=== PATIENT | female | born 2000 | race Caucasian/White ===

== ENCOUNTER 2019-07-22 15:45 | Outpatient (CLI) | payer MEDICAID, SELFPAY ==
--- NOTE | 2019-07-22 15:50 | US_ITS ---
WS: [id number] EARLY OBSTETRICAL ULTRASOUND (<14 WEEKS). HISTORY: UNSURE OF DATES COMPARISON: None available. Single intrauterine gestational sac is identified. Cardiac activity at 185 BPM. Asher-rump length alfonzo sures 3.3 cm which corresponds to a gestation of 10 weeks 1 day. Normal-appearing yolk sac and amnion demonstrated. No subchorionic hemorrhage. No free fluid. Neither ovary is very well visualized. US/US OB <= 14 weeks fetus [id number] IMPRESSION: 1. Single intrauterine gestation of 10 weeks 1 day with an EDC of 02/16/2020. 2. Normal cardiac activity.
== END 2019-07-22 15:46 | disposition home or self-care (01) ==
PROVIDERS: Visit Provider Family Medicine
DX: Z3A.00 Weeks of gestation of pregnancy not specified (principal); Z34.91 Encounter for supervision of normal pregnancy, unspecified, first trimester; Z3A.10 10 weeks gestation of pregnancy
CPT/HCPCS: 76801

== ENCOUNTER 2020-01-18 20:30 | Outpatient (CLI) | payer MEDICAID, SELFPAY ==
[2020-01-18 20:40] VITALS: BMI 26.9
[2020-01-18 20:50] VITALS: BP 127/73; PULSE 116; RESP 16; TEMP 36.9
[2020-01-18 21:33] LABS: Actim Prom Negative
[2020-01-18 21:34] LABS: Bilirubin Urine Neg (Negative); Blood Urine Neg (Negative); Glucose Urine UA Norm (Normal); Ketones Urine Negative (Negative); Nitrate Urine Negative (Negative); Protein Urine Neg (Negative); Urine Color Yellow (Yellow); pH Urine 7 (5-7)
[2020-01-18 21:35] LABS: Add Urine Culture? No; Bacteria Urine TRACE /hpf; Leukocyte Esterase Urine Negative (Negative); RBC Urine 0-4 /hpf (0-2); Squamous Epithelial Cell Urine TOO NUMEROUS TO CNT /hpf (0-5); Urobilinogen Urine Norm (Negative); WBC Urine 0-4 /hpf (0-5)
[2020-01-18 23:05] VITALS: BP 116/67; PULSE 98; RESP 16; TEMP 37.1
[2020-01-18 23:07] VITALS: BP 116/67; PULSE 98; RESP 16; TEMP 37.1
== END 2020-01-18 23:28 | disposition home or self-care (01) ==
LOC: OPOB 20:34 → OBGYN 20:34
PROVIDERS: Visit Provider Obstetrics & Gynecology
DX: O26.899 Other specified pregnancy related conditions, unspecified trimester (principal); Z3A.00 Weeks of gestation of pregnancy not specified; R10.9 Unspecified abdominal pain
CPT/HCPCS: 59025; 81001; 83986; 84112; 99211

== ENCOUNTER 2020-01-21 16:25 | Outpatient (CLI) | payer MEDICAID, SELFPAY ==
[2020-01-21 17:03] VITALS: BP 129/73; PULSE 110
[2020-01-21 17:09] VITALS: RESP 18; TEMP 37.2
[2020-01-21 17:10] VITALS: BMI 26.5
[2020-01-21 18:34] VITALS: BP 115/67; PULSE 104
== END 2020-01-21 18:40 | disposition home or self-care (01) ==
LOC: OPOB 16:36 → OBGYN 16:37
PROVIDERS: Visit Provider Family Medicine
DX: O26.899 Other specified pregnancy related conditions, unspecified trimester (principal); Z3A.00 Weeks of gestation of pregnancy not specified; R10.9 Unspecified abdominal pain
CPT/HCPCS: 59025; 99211

== ENCOUNTER 2020-01-23 11:40 | Outpatient (CLI) | payer MEDICAID, SELFPAY ==
[2020-01-23] VITALS (10 sets, daily range): BP systolic 0–132; BP diastolic 0–70; PULSE 100–118; RESP 16; TEMP 36.8; BMI 26.3
[2020-01-23 12:18] LABS: Nitrazine Paper, PH Negative
[2020-01-23 12:33] LABS: Basophils # 0.1 10^3/uL (0.0-0.1); Basophils % 0.5 %; Eosinophils # 0.2 10^3/uL (0.0-0.8); Eosinophils % 1.3 %; Hematocrit 29.2 % (37.0-47.0); Hemoglobin 10.3 g/dL (11.5-15.3); Lymphocytes # 2.9 10^3/uL (0.8-4.8); Lymphocytes % 17.7 %; Mean Corpuscular HGB Conc 35.3 g/dL (30.0-36.0); Mean Corpuscular Hemoglobin 32.3 pg (28.0-34.0); Mean Corpuscular Volume 91.5 fL (81-99); Mean Platelet Volume 10.7 fL (7.4-10.4); Monocytes # 1.3 10^3/uL (0.2-0.9); Monocytes % 7.7 %; Neutrophils # 11.65 10^3/uL (1.8-7.7); Neutrophils % 70.6 %; Nucleated Red Blood Cells # 0.1 /100WBC; Nucleated Red Blood Cells % 0.4 %; Platelet Count 295 10^3/cmm (130-400); Red Blood Count 3.19 10^6/uL (4.1-5.3); Red Cell Distribution Width 19.3 % (12.1-15.1); White Blood Count 16.5 10^3/uL (4.0-10.0)
[2020-01-23 12:46] LABS: Bilirubin Urine Neg (Negative); Blood Urine Neg (Negative); Glucose Urine UA Norm (Normal); Ketones Urine Negative (Negative); Leukocyte Esterase Urine Negative (Negative); Nitrate Urine Negative (Negative); Protein Urine Neg (Negative); Specific Gravity, Urine 1.015 (1.005-1.030); Sulfosalicylic Acid Urine Negative (Negative); Urine Appearance Cloudy (CLEAR); Urine Color Yellow (Yellow); Urobilinogen Urine 1 mg/dL (Negative); pH Urine 8 (5-7)
[2020-01-23 12:54] LABS: Amphetamines Screen Urine Negative (Negative); Barbiturates Screen Urine Negative (Negative); Benzodiazepines Screen Urine Negative (Negative); Cocaine Screen Urine Negative (Negative); Opiate Screen Urine Negative (Negative); PCP Screen Urine Negative (Negative); THC Screen Urine Negative (Negative)
[2020-01-23 13:17] LABS: Add Urine Culture? No; Amorphous Sediment Urine 1+ /hpf; Bacteria Urine TRACE /hpf; WBC Urine 0-4 /hpf (0-5)
== END 2020-01-23 13:25 | disposition home or self-care (01) ==
LOC: OPOB 11:45 → OBGYN 11:46
PROVIDERS: Visit Provider Obstetrics & Gynecology
DX: O26.899 Other specified pregnancy related conditions, unspecified trimester (principal)
CPT/HCPCS: 36415; 80306; 81001; 83986; 85025; 99211

== ENCOUNTER 2020-02-18 02:22 | Inpatient (IN) | payer MEDICAID, SELFPAY ==
[2020-02-17 19:08] VITALS: BP 144/80; PULSE 135
[2020-02-17 19:09] VITALS: BP 140/73; PULSE 133
[2020-02-17 19:52] VITALS: BP 119/71; PULSE 112
[2020-02-17 20:00] VITALS: TEMP 36.7
[2020-02-17 20:02] VITALS: BP 116/66; PULSE 105
[2020-02-17 20:27] VITALS: BMI 27.4
[2020-02-17 20:56] LABS: Basophils # 0.1 10^3/uL (0.0-0.1); Basophils % 0.6 %; Eosinophils # 0.2 10^3/uL (0.0-0.8); Hemoglobin 10.8 g/dL (11.5-15.3); Lymphocytes # 3.6 10^3/uL (0.8-4.8); Lymphocytes % 16.6 %; Mean Corpuscular Volume 91.7 fL (81-99); Mean Platelet Volume 10.7 fL (7.4-10.4); Monocytes # 1.4 10^3/uL (0.2-0.9); Monocytes % 6.4 %; Neutrophils # 15.86 10^3/uL (1.8-7.7); Neutrophils % 73.5 %; Nucleated Red Blood Cells # 0.2 /100WBC; Nucleated Red Blood Cells % 0.7 %; Platelet Count 301 10^3/cmm (130-400); Red Blood Count 3.27 10^6/uL (4.1-5.3); Red Cell Distribution Width 19.8 % (12.1-15.1); White Blood Count 21.6 10^3/uL (4.0-10.0)
[2020-02-18] VITALS (155 sets, daily range): BP systolic 0–130; BP diastolic 0–81; PULSE 75–118; RESP 16–20; TEMP 36.6–37.2; O2SAT 88–100
[2020-02-18] MEDS: miSOPROStol 100 mcg tablet 25 MCG VAGINAL ×2 (00:46→06:34)
[2020-02-18] MEDS: acetaminophen 325 mg Tablet 650 MG PO (00:46)
--- NOTE | 2020-02-18 03:09 | ANES.PREANE2 ---
Pre-Anesthetic Assessment Pre-Anesthetic Assessment: Height/Weight: Height 1.68 m Weight 77.111 kg Temp Pulse BP Pulse Ox 98.1 F 90 111/69 99 02/17/20 20:00 02/18/20 03:07 02/18/20 03:07 02/18/20 03:04 Preop Diagnosis: IUP Proposed Procedure: Lumbar Labor Epidural Was Beta Mansoor taken within 24 hours: N/A Social: Social History: Tobacco (1-2 cig day) Exam: Pre-Anes Outpt Exam: alert, oriented x 3, clear to auscultation bilaterally and regular rate & rhythm Airway: MP: 2 History/ROS: Other (wbc 21. no s/s infection. no fever) Pulmonary: Pulmonary: None reported CV/HEM: CV/HEM: None reported : : None reported Hepatic: Hepatic: None reported GI: GI: None reported Metabolic: Metabolic: None reported Musc/skel: Musc/skel: None reported Neuropsych: Neuropsych: None reported Anesthetic Plan: ASA status: 2 Anesthesia: Regional (specify below) (epidural) Meds/Allergies Current Medications: Current Medications Generic Name Dose Route Start Last Admin Trade Name Freq PRN Reason Stop Dose Admin Acetaminophen 650 mg 02/17/20 20:29 02/18/20 00:46 Acetaminophen 32 5 Mg Tablet PO 650 mg Q6H PRN Administration Mild pain or temp > 100.4 Ropivacaine 200 mg in 100 mls @ 6 mls/hr 02/18/20 01:30 02/18/20 02:50 Naropin Premix EPIDURAL 6 mls/hr .[id number] SHAAN Administration Misoprostol 25 mcg 02/17/20 20:30 02/18/20 00:46 Misoprostol 100 Mcg Tablet VAGINAL 02/18/20 04:31 25 mcg Q4H SHAAN Administration PFSH Anesthesia Female Reproductive History: Date of last menstrual period: 05/17/19 : 3 Data Anesthesia CBC & Chem 7: 02/17/20 20:06 Other Labs: Laboratory Results - last 48 hr 02/17/20 20:06 WBC 21.6 H RBC 3.27 L Hgb 10.8 L Hct 30.0 L MCV 91.7 MCH 33.0 MCHC 36.0 RDW 19.8 H Plt Count 301 MPV 10.7 H Neut % (Auto) 73.5 Lymph % (Auto) 16.6 Andrews % (Auto) 6.4 Eos % (Auto) 1.0 Baso % (Auto) 0.6 Neut # (Auto) 15.86 H Lymph # (Auto) 3.6 Andrews # (Auto) 1.4 H Eos # (Auto) 0.2 Baso # (Auto) 0.1 Nucleated RBC % (auto) 0.7 Nucleated RBCs # 0.2 Cardiac Studies: No Data to Display Anesthesia Procedures Date of Procedure: 02/18/20 Epidural: Time Out Performed: Yes Consents Signed: Procedure Consent Consent: from patient, risks and benefits reviewed and patient agrees to proceed Lumbar Level: L3-L4 Epidural position: sitting Epidural procedure: sterile prep of area, 1% lidocaine to numb the area (5), 18 g needle, negative for paresthesia passed, neg for paresthesia, test dose given, 1.5% xylocaine 1:200k epi (5), 0.2% Ropivacaine bolus ml (5), placed PCEA (5cc q10min x 3), no systemic response, sterile dressing applied, L.U.D. no apparent complications and 0.2% Ropiavacaine @ mls/hr (12) Additional Comments: Called to OB for epidural placement, pt evaluated and assessed for placement and explained procedure. Labs reviewed. Pt agrees to proceed. placed to 5cm in space and tolerated well. Bolused with epidural pump and VSS throughout per nursing chart. Last BP 113/70. Pain much improved.
[2020-02-18] MEDS: dextrose 5%-lactated ringers 1,000 ML 125 ML IV ×3 (03:20→18:53)
[2020-02-18] MEDS: ondansetron 2 mg/ML SDV 2 mL 4 MG IVP (09:20)
[2020-02-18] MEDS: oxytocin 30 UNIT/500 ML BAG 600 UNIT IV (21:31)
--- NOTE | 2020-02-18 21:53 | P.PCNOB_ITS ---
Delivery Note: Date of delivery: February 18, 2020 Pre-delivery diagnoses: 40-week 3 para 1-0-1-1 female presenting for induction Post-delivery diagnoses: Same Procedure: Spontaneous vaginal delivery Op report anesthesia: Epidural Estimated blood loss (mL): 150 Pre-Delivery Course: The patient arrived to the hospital for induction last night. She was placed on Cytotec 25 mcg x 3. An amniotomy was performed. Pitocin augmentation occurred. She progressed to complete without difficulty. Her was unremarkable. She was GBS negative. She was Covid negative. Her glucose screen was negative. The remainder of her labs was unremarkable. Her blood type is O+. Delivery: DELIVERY: The patient progressed to complete without difficulty. She delivered a male with a weight of 7 pounds 13 ounces with Apgars of 8, 9. The baby was delivered from the YUKO position. The baby's mouth and nose were suctioned shortly after delivery. The baby was placed on the mother's abdomen. After 1 minute the cord was then clamped and cut. There was no nuchal cord. There was no meconium. The placenta and 3 vessel cord were delivered intact shortly thereafter. The perineum and vaginal vault were carefully examined. No lacerations were noted. Both the mother and the baby were in stable condition. A&P Assessment and plan (1) Post term over 40 weeks: Status: Acute (2) Spontaneous vaginal delivery: Status: Acute Coding Level of Care Code Acute Jacquard Card Lacer for Chg Fwd Diagnoses Post term over 40 weeks O48.0 Spontaneous vaginal delivery O80
[2020-02-18] MEDS: benzocaine-menthol 78 gm Canister 1 SPRAY TOPICAL (23:23)
[2020-02-18] MEDS: lanolin oint 7 gm 1 APPLIC TOPICAL (23:23)
[2020-02-19] VITALS (11 sets, daily range): BP systolic 100–117; BP diastolic 61–72; PULSE 86–97; RESP 16–18; TEMP 36.4–37.1; O2SAT 96–99
[2020-02-19] MEDS: HYDROcodone-acetaminophen 5-325 mg Tablet PO ×3 (00:44→14:52)
--- NOTE | 2020-02-19 04:13 | PC.NURSE ---
AT 2345, PT AMBULATED TO ROOM. FINANCIAL ASSISTANT PROVIDED STANDBY ASSISTANCE. PT TOLERATED AMBULATION WELL WITH NO COMPLAINTS OR SIGNS OF DISTRESS.
[2020-02-19] MEDS: prenatal vitamin Capsule 1 CAP PO (08:42)
[2020-02-19] MEDS: ibuprofen 800 mg tablet PO ×3 (08:43→21:19)
[2020-02-19] MEDS: docusate sodium 100 mg Capsule PO (08:43)
[2020-02-19 10:28] LABS: Hematocrit 25.3 % (37.0-47.0); Hemoglobin 8.7 g/dL (11.5-15.3); Mean Corpuscular HGB Conc 34.4 g/dL (30.0-36.0); Mean Corpuscular Hemoglobin 32.3 pg (28.0-34.0); Mean Corpuscular Volume 94.1 fL (81-99); Mean Platelet Volume 11.2 fL (7.4-10.4); Platelet Count 234 10^3/cmm (130-400); Red Blood Count 2.69 10^6/uL (4.1-5.3); Red Cell Distribution Width 20.3 % (12.1-15.1); White Blood Count 19.6 10^3/uL (4.0-10.0)
--- NOTE | 2020-02-19 18:16 | PM.OBGYDC ---
Discharge Providers LENS GRINDING MACHINE OPERATOR Date of Admission: 02/18/20 02:22 Date of Discharge: 02/19/20 Attending Provider at Admission: Ronald Solo MD Attending Provider at Discharge: Ronald Solo MD Diagnoses at Discharge Discharge Diagnosis (1) Post term over 40 weeks: Status: Acute (2) Spontaneous vaginal delivery: Status: Acute Reason for Visit Reason for Visit: Induction of labor Hospital Course Hospital Course The patient presented to the hospital for induction due to being postdates. She is placed on Cytotec 25 mcg x 3. An amniotomy was performed. Her labor was augmented with Pitocin. She progressed to complete and had an unremarkable delivery of a healthy term male . Her course was also unremarkable. Her bleeding was within normal limits. Her pain was well controlled. She breast-fed well. There were no concerns. Information Peripartum Data: Infant Delivery Method: Vaginal Physical Exam Narrative: EXAM NARRATIVE: The patient is alert. She appears comfortable. Her heart has a regular rate and rhythm with no murmurs appreciated. Lungs are clear to auscultation bilaterally. Her fundus is firm and below the umbilicus. Urinary Catheter Management^: Akins: Cath Placed During This Visit: yes Reason for Continuing Indwelling Catheter: Required Immobilization for Trauma or Surgery or Anesthesia Urinary Catheter Date of Insertion: 02/18/20 Urinary Catheter Time of Insertion: 03:45 Discharge Data Data Completed and Pending: Labs from last 24 hours 02/19/20 10:10 WBC 19.6 H RBC 2.69 L Hgb 8.7 L Hct 25.3 L MCV 94.1 MCH 32.3 MCHC 34.4 RDW 20.3 H Plt Count 234 MPV 11.2 H Vitals: Last Vital Signs Temp 97.9 F 02/19/20 15:00 Pulse 93 02/19/20 15:00 Resp 18 02/19/20 15:00 BP 117/72 02/19/20 15:00 Pulse Ox 98 02/19/20 15:00 Discharge Plan Discharge Patient Disposition: Home Condition: Stable Prescriptions: New ibuprofen 800 mg Tablet 800 mg PO TID Qty: 30 RF: 0 Continued prenat.vits,britney,zug-ksuk-odtuc Tablet 1 tab PO DAILY RF: 0 Discharge Orders: Discharge Order (Routine); Ordered 02/19/20 Ordered By: Ronald Solo Referrals: Ronald Solo MD [Physician] - 6 Weeks Discharge Diet: Regular Discharge Activity: Limit activity as instructed Discharge Attestations LENS GRINDING MACHINE OPERATOR Time Spent in Discharge Care*: less than 30 min Coding Level of Care Code Acute Auto Cleaner for Chg Fwd Diagnoses Post term over 40 weeks O48.0 Spontaneous vaginal delivery O80
== END 2020-02-19 22:17 | disposition home or self-care (01) | DRG 807 ==
LOC: OBGYN 05:57 → OPOB 07:59
PROVIDERS: Admitting Provider Family Medicine; Visit Provider Family Medicine
DX: O48.0 Post-term pregnancy (principal); Z37.0 Single live birth; Z3A.40 40 weeks gestation of pregnancy
CPT/HCPCS: 12345; 36415; 51702; 59025; 59409; 85025; 85027; 96375; 98960; 99211; J2405; J2795

== ENCOUNTER → 2021-02-02 09:47 | Outpatient (BNVA) | payer MEDICAID, SELFPAY | PROVIDERS: Visit Provider Obstetrics & Gynecology | DX: Z01.818 Encounter for other preprocedural examination (principal); Z20.822 Contact with and (suspected) exposure to COVID-19; N80.9 Endometriosis, unspecified; N92.0 Excessive and frequent menstruation with regular cycle; N94.6 Dysmenorrhea, unspecified; R10.2 Pelvic and perineal pain; Z84.2 Family history of other diseases of the genitourinary system | CPT/HCPCS: 87635 ==

== ENCOUNTER 2021-02-08 10:26 | Observation (INO) | payer MEDICAID, SELFPAY ==
[2021-02-07 14:12] VITALS: BMI 21.7
[2021-02-08] VITALS (23 sets, daily range): BP systolic 96–122; BP diastolic 57–75; PULSE 77–114; RESP 14–18; TEMP 36.3–36.9; O2SAT 92–100
[2021-02-08 06:47] LABS: OR HCG Qualitative Urine Negative (Negative)
[2021-02-08] MEDS: sodium chloride 0.9% 1,000 ML 30 ML IV (06:51)
--- NOTE | 2021-02-08 06:51 | ANES.PREANE2 ---
Pre-Anesthetic Assessment Pre-Anesthetic Assessment: Height/Weight: Height 1.68 m Weight 61.235 kg Temp Pulse Resp BP Pulse Ox 97.4 F L 96 18 107/66 100 02/08/21 06:18 02/08/21 06:18 02/08/21 06:18 02/08/21 06:18 02/08/21 06:18 Preop Diagnosis: endometriosis, dysmenorrhea, menorrhagia, pelvic pain Proposed Procedure: Operation Date: 02/08/21 07:00 Proposed Procedures p Laparoscopic Assist Vaginal Hysterectomy 64646 N80.9 N92.0 N94.6 R10.2 Z84.2(Not Applicable) - Yue Gutierres MD s Laparoscopic Salpingectomy(Bilateral) - Yue Gutierres MD Was Beta Mansoor taken within 24 hours: N/A Was Clonidine taken within 24 hours: N/A Last intake: Intake Last Liquid Date 02/07/21 Last Liquid Time 21:30 Last Solid Date 02/07/21 Last Solid Time 21:30 Social: Social History: Tobacco and No alcohol Exam: Pre-Anes Outpt Exam: alert, oriented x 3, clear to auscultation bilaterally and regular rate & rhythm Airway: Submandibular: WNL Cervical ROM: WNL MP: 1 Pulmonary: Pulmonary: Asthma CV/HEM: CV/HEM: None reported : : None reported Hepatic: Hepatic: None reported GI: GI: GERD (only with certain foods) Metabolic: Metabolic: None reported Musc/skel: Musc/skel: None reported Neuropsych: Neuropsych: Depression Anesthetic Plan: ASA status: 2 Anesthesia: General PFSH Anesthesia PFSH: Medical History Anxiety Asthma exacerbation Depression History of abnormal cervical Pap smear History of depression Left ovarian cyst Redundant colon Surgical History History of appendectomy Family History Mother Raynaud's syndrome Scleroderma CHF (congestive heart failure) Endometriosis Cancer chronic lymphatic leukemia Hypertension Grandmother Cancer acute lymphatic leukemia and lung leukemia--Maternal Grandfather Cancer Maternal--prostate Denies family history of Diabetes CAD (coronary artery disease) Clotting disorder Hyperlipidemia Chronic kidney disease (CKD) Bleeding disorder Stroke Female Reproductive History: Date of last menstrual period: 05/17/19 Data Anesthesia Other Labs: Laboratory Results - last 48 hr 02/08/21 06:44 Urine HCG, Qual Negative Cardiac Studies: No Data to Display
[2021-02-08] MEDS: acetaminophen 1,000 MG/100 ML PIGGYBACK 400 MG IV (06:52)
[2021-02-08] MEDS: CELEcoxib 200 mg Capsule 400 MG PO (06:53)
[2021-02-08] MEDS: ketorolac 30 mg/mL INJ IVP ×3 (06:53→22:22)
[2021-02-08] MEDS: gabapentin 300 mg Capsule PO (06:53)
[2021-02-08] MEDS: phenazopyridine 100 mg Tablet 200 MG PO (06:53)
--- NOTE | 2021-02-08 07:00 | W.PM.OPSUD ---
Surgery/Procedure H&P Update DATE OF PROCEDURE: February 08, 2021 DATE H&P PERFORMED: 01/28/21 H&P UPDATE INFORMATION: I have reviewed H&P completed within last 30 days, I have examined patient prior to procedure and No changes to prior documentation CHANGES TO PREVIOUS DOCUMENTATION: The patient is seen and examined. No changes. PREOP DIAGNOSIS: endometriosis, dysmenorrhea, menorrhagia, pelvic pain PLANNED PROCEDURE: Operation Date: 02/08/21 07:00 Proposed Procedures p Laparoscopic Assist Vaginal Hysterectomy 27970 N80.9 N92.0 N94.6 R10.2 Z84.2(Not Applicable) - Yue Gutierres MD s Laparoscopic Salpingectomy(Bilateral) - Yue Gutierres MD Related Problem List Diagnoses (1) Menorrhagia: (2) Dysmenorrhea: (3) Pelvic pain: (4) Endometriosis: (5) History of abnormal cervical Pap smear:
[2021-02-08 07:05] LABS: Basophils # 0.1 10^3/uL (0.0-0.1); Basophils % 0.8 %; Eosinophils # 0.3 10^3/uL (0.0-0.8); Hematocrit 35.4 % (37.0-47.0); Hemoglobin 12.8 g/dL (11.5-15.3); Lymphocytes # 2.3 10^3/uL (0.8-4.8); Lymphocytes % 26.8 %; Mean Corpuscular HGB Conc 36.2 g/dL (30.0-36.0); Mean Corpuscular Hemoglobin 28.6 pg (28.0-34.0); Mean Platelet Volume 11.2 fL (7.4-10.4); Monocytes # 0.6 10^3/uL (0.2-0.9); Monocytes % 6.4 %; Neutrophils # 5.37 10^3/uL (1.8-7.7); Neutrophils % 62.5 %; Nucleated Red Blood Cells % 0 %; Platelet Count 262 10^3/cmm (130-400); Red Blood Count 4.48 10^6/uL (4.1-5.3); Red Cell Distribution Width 16.8 % (12.1-15.1); White Blood Count 8.6 10^3/uL (4.0-10.0)
[2021-02-08 07:25] LABS: Blood Urea Nitrogen 6 mg/dL (6-20); Calcium 9.1 mg/dL (8.5-10.5); Carbon Dioxide 24 mmol/L (22-29); Chloride 106 mmol/L (98-107); Glomerular Filtration Rate 199.6 mL/min (90-130); Glucose 92 mg/dL (65-115); Osmolality Calculated 287 mOsm/kg (285-295); Sodium 140 mmol/L (136-145)
[2021-02-08] MEDS: vasopressin 20 unit/mL INJ 4 UNIT INJECTION (08:35)
--- NOTE | 2021-02-08 08:36 | SUR.OPER ---
0750 PT PLACED VERY LOW ON OR TABLE PER DR MCGUIRE INSTRUCTION, CARE WAS TAKEN TO MAKE SURE LOWER BACK WAS PADDED. DR MCGUIRE INSPECTED AND APPROVED FINAL POSITION.
--- NOTE | 2021-02-08 09:43 | PM.OP ---
Operative Report Date of procedure: February 08, 2021 Pre-op Diagnosis: endometriosis, dysmenorrhea, menorrhagia, pelvic pain Post-op diagnosis: same Post-op Diagnosis: No endometriosis seen Procedure Done: laparoscopic assisted vaginal hysterectomy with bilateral salpingectomy, cystoscopy Specimens removed/disposition: uterus and bilateral fallopian tubes to pathology Anesthesia: General Estimated blood loss (mL): 150 IV fluids (mL): 1,500 Urine output (mL): 1,200 Complications: none Findings: 8 week sized uterus, normal appearing tubes and ovaries. No adhesions, no endometriosis seen. Condition: stable Disposition: floor Brief History: The patient presented as a consult for hysterectomy. She has a family history of endometriosis and reports pelvic pain for a number of years. She is done with child bearing. She has a long history of abnormal pap smears, heavy menses and dysmenorrhea. She underwent a second opinion consult with Dr. French who felt that the patient understood her risks and could proceed. Procedure: The patient was taken to the operating room where general anesthesia was administered and found to be adequate. She was prepped and draped in the normal sterile fashion in the dorsal lithotomy position in [facility]. A Akins catheter was placed. A weighted speculum was placed into the vagina and the anterior lip of the cervix was grasped with a single tooth tenaculum. The Zumi uterine manipulator was placed. The weighted speculum was removed. The gloves were changed and attention was turned to the abdomen. A 5 mm supraumbilical incision was made. Using a 5 mm port with the camera, the port was placed into the abdomen. The abdomen was insufflated. Two low, lateral 5 mm ports were placed on the left and right under direct visualization from the camera. The right tube was grasped and elevated. Using the laparoscopic cautery, the mesosalpinx was divided between the ovary and tube. The tube was removed. This was performed the same way on the left. The uteroovarian ligaments as well as the round ligaments were ligated. Attention was then turned to the vaginal portion of the procedure. The weighted speculum was placed into the vagina. The zumi manipulator was removed. The single tooth tenaculum was removed and replaced with the lauren's tenaculum. 10 mL of dilute Pitressin was injected at the vesicovaginal junction. A circumferential incision was made at the vesicovaginal junction and the vaginal mucosa reflected cephalad. The posterior peritoneum was entered sharply with the Metzenbaum scissors and the long weighted speculum replaced. Using the Allison clamps the uterosacral ligaments were clamped cut and suture-ligated. The anterior peritoneum was entered sharply with the metzenbaum scissors. Then sequentially the uterine arteries and cardinal ligaments were clamped cut and suture-ligated. The remaining segement of the utero-ovarian ligaments were clamped cut and suture-ligated bilaterally and the specimen was removed. There was good hemostasis with only mild bleeding from the cuff. The peritoneum was closed with a pursestring using 2-0 Vicryl. The vaginal cuff was closed with 0 Vicryl in a running locked pattern incorporating the uterosacral ligaments into the lateral aspects of the vaginal cuff. The Akins catheter was removed and the cystoscope advanced into the bladder. The patient was given pyridium during preop and bilateral spill was noted. There were no injuries or deficits noted in the bladder. The cystoscope was removed and the Akins was replaced. Vaginal packing was placed for good hemostasis. The patient tolerated the procedure well. Sponge lap and needle counts were correct x3. She was taken to the recovery room in stable condition.
[2021-02-08] MEDS: fentaNYL 50 mcg/mL INJ 2mL IVP ×2 (09:53→10:01)
[2021-02-08] MEDS: ondansetron 2 mg/ML SDV 2 mL 4 MG IVP (09:57)
[2021-02-08] MEDS: scopolamine 1.5 Patch 1 PATCH TRANSDERMA (10:14)
[2021-02-08] MEDS: oxyCODONE-APAP 5-325 mg Tablet PO ×2 (11:06→17:16)
[2021-02-08] MEDS: dextrose 5%-lactated ringers 1,000 ML 125 ML IV ×2 (11:43→20:43)
--- NOTE | 2021-02-08 12:06 | PC.NURSE ---
Answered pt call light. Pt reports having chest pain . Pt describes it as a balloon in my chest causing pain and pressure. Pt assessment is normal, VS are WNL. Heart sounds auscultated normal. Called Dr. Gutierres at 1206 and reported the previous information. Dr. Gutierres reported that it may be from the gas that is used during laparscopic surgeries. Sometimes it can cause chest and shoulder pain. Received orders for EKG. Also reported that pt is anxious and that chest pain may be related to that as well. Also received order for 0.5 mg Ativan IVP every 3 hours PRN for anxiety.
--- NOTE | 2021-02-08 12:08 | ECG_ITS ---
[facility] Test Date: 2021-02-08 Pat Name: Lily Low Department: Room: OB7 Gender: Female Database Operator: : 2000 Requested By: Yue Gutierres Order Number: [id number] [place] MD: Genoveva Mcdonald M.D. Measurements Intervals [place] Rate: 77 P: 50 TN: 179 QRS: 35 QRSD: 80 T: 62 QT: 402 QTc: 457 Interpretive Statements SINUS RHYTHM No previous ECG available for comparison Electronically Signed On 02-08-2021 17:54:47 SALES ORDER COORDINATOR by Genoveva Mcdonald M.D. [id number]
[2021-02-08] MEDS: LORazepam 2 mg/mL INJ 1 mL 0.5 MG IVP ×2 (12:17→20:43)
--- NOTE | 2021-02-08 12:24 | ANE.PACU2 ---
Inpatient post-anesthesia follow up: Airway intact: Yes Vital signs: Temperature 98.1 F Pulse Rate 99 Respiratory Rate 17 Blood Pressure 112/70 Pulse Oximetry 94 Oxygen Delivery Me thod Room Air Oxygen Flow Rate Fraction of Inspir ed Oxygen Hydration adequate: Yes Nausea and vomiting: Yes Pain level: 5 Mental status: Baseline
[2021-02-08] MEDS: docusate sodium 100 mg Capsule PO (17:16)
[2021-02-09 00:01] VITALS: RESP 16
[2021-02-09] MEDS: oxyCODONE-APAP 5-325 mg Tablet PO ×2 (00:01→09:01)
[2021-02-09] MEDS: LORazepam 2 mg/mL INJ 1 mL 0.5 MG IVP (01:37)
[2021-02-09] MEDS: ketorolac 30 mg/mL INJ IVP (04:04)
[2021-02-09 04:14] VITALS: BP 98/60; PULSE 81; RESP 16; TEMP 37.2; O2SAT 97
[2021-02-09] MEDS: dextrose 5%-lactated ringers 1,000 ML 125 ML IV (05:24)
[2021-02-09 05:40] LABS: Hematocrit 25.7 % (37.0-47.0); Hemoglobin 9.2 g/dL (11.5-15.3); Mean Corpuscular HGB Conc 35.8 g/dL (30.0-36.0); Mean Corpuscular Hemoglobin 28.8 pg (28.0-34.0); Mean Corpuscular Volume 80.6 fl (81-99); Mean Platelet Volume 10.7 fL (7.4-10.4); Platelet Count 204 10^3/cmm (130-400); Red Blood Count 3.19 10^6/uL (4.1-5.3); Red Cell Distribution Width 17.1 % (12.1-15.1); White Blood Count 8.5 10^3/uL (4.0-10.0)
[2021-02-09 06:14] LABS: Alanine Aminotransferase 7 U/L (0-33); Albumin Level 3.4 g/dL (3.5-5.2); Alkaline Phosphatase 59 IU/L (35-105); Anion Gap 14.4 (5-19); Aspartate Amino Transferase 10 U/L (0-32); Blood Urea Nitrogen 3 mg/dL (6-20); Calcium 7.4 mg/dL (8.5-10.5); Carbon Dioxide 20 mmol/L (22-29); Chloride 104 mmol/L (98-107); Globulin 1.8 g/dL (1.3-4.6); Glomerular Filtration Rate 199.6 mL/min (90-130); Glucose 107 mg/dL (65-115); Osmolality Calculated 277 mOsm/kg (285-295); Potassium 3.4 mmol/L (3.5-5.1); Sodium 135 mmol/L (136-145); Total Bilirubin 0.4 mg/dL (0.15-1.2); Total Protein 5.2 g/dL (6.6-8.7)
[2021-02-09] MEDS: sertraline 50 mg Tablet PO (08:38)
[2021-02-09] MEDS: docusate sodium 100 mg Capsule PO (08:38)
--- NOTE | 2021-02-09 08:45 | PC.NURSE ---
Patient stated she had voided x1 in toilet, unaware she needed to void in urine hat. Patient instructed to void in hat, rather than in toilet to allow for measurement of urine output. Patient verbalized understanding. This nurse placed urine in toilet under lid to prepare for next void.
[2021-02-09 09:01] VITALS: RESP 18
--- NOTE | 2021-02-09 09:45 | PM.DCS ---
Discharge Providers Date of Admission: 02/08/21 10:26 Date of Discharge: February 09, 2021 Attending Provider at Admission: Yue Gutierres MD Attending Provider at Discharge: Yue Gutierres MD Primary Care Provider: VIDAL Ortiz Diagnoses at Discharge Discharge Diagnosis (1) Menorrhagia: Status: Acute (2) Dysmenorrhea: Status: Acute (3) Pelvic pain: Status: Acute (4) Endometriosis: Status: Acute (5) History of abnormal cervical Pap smear: Status: Acute Reason for Visit Reason for Visit: Endometriosis Hospital Course Hospital Course The patient was admitted for surgery. She did well and was ready for discharge on day #1 Physical Exam Narrative: EXAM NARRATIVE: The patient is doing well this morning. Packing and catheter has been removed. She is tolerating a regular diet and ambulating. Pain is well controlled on percocet. Const: COMMON NORMALS: no acute distress, average body habitus, patient oriented x3, no limitations, healthy appearing, alert and well nourished GENERAL APPEARANCE: cooperative, comfortable, well kempt and well developed ORIENTATION/CONSCIOUSNESS: Yes awake, Yes oriented to person, Yes oriented to place and Yes oriented to time Resp: COMMON NORMALS: normal respiratory effort EFFORT & INSPECTION: Yes able to speak in complete sentences GI: COMMON NORMALS: Soft to palpation and non-tender PALPATION: Yes Soft to palpation : COMMON NORMALS: Yes normal external appearance and Yes normal appearance of the vagina Extremity: COMMON NORMALS: no calf tenderness Neuro: COMMON NORMALS: patient oriented x3 SENSORIUM/ORIENTATION: Yes alert, Yes oriented to person, Yes oriented to place and Yes oriented to time Psych: APPEARANCE: Yes well kempt Skin: WOUNDS: Yes surgical site (clean/dry and intact) Urinary Catheter Management^: Akins: Cath Placed During This Visit: yes, but has since been removed by the nurse Reason for Continuing Indwelling Catheter: Required Immobilization for Trauma or Surgery or Anesthesia Urinary Catheter Date of Insertion: 02/08/21 Urinary Catheter Time of Insertion: 07:50 Date Urinary Catheter Removed: 02/09/21 Time Urinary Catheter Discontinued: 06:15 Discharge Data Data Completed and Pending: Pending at discharge Category Date Time Status ES surgery / GI i mages Routine Exams 02/08/21 06:46 Taken Urine Culture [facility] Lab 02/08/21 06:15 Received Pathology: Surgic al [PTH] Routine Pth 02/08/21 09:50 Received Labs from last 24 hours 02/09/21 02/09/21 05:10 05:10 WBC 8.5 RBC 3.19 L Hgb 9.2 L Hct 25.7 L MCV 80.6 L MCH 28.8 MCHC 35.8 RDW 17.1 H Plt Count 204 MPV 10.7 H Sodium 135 L Potassium 3.4 L Chloride 104 Carbon Dioxide 20 L Anion Gap 14.4 BUN 3 L Creatinine 0.4 L GFR Calculation 199.6 H Glucose 107 Calculated Osmolal ity 277 L Calcium 7.4 L Total Bilirubin 0.4 AST 10 ALT 7 Alkaline Phosphata se 59 Total Protein 5.2 L Albumin 3.4 L Globulin 1.8 Vitals: Last Vital Signs Temp 98.9 F 02/09/21 04:14 Pulse 81 02/09/21 04:14 Resp 18 02/09/21 09:01 BP 98/60 02/09/21 04:14 Pulse Ox 97 02/09/21 04:14 Discharge Plan Discharge Patient Disposition: Home Condition: Stable Prescriptions: New oxycodone-acetaminophen 5-325 mg Tablet 1 tab PO Q4H PRN (Reason: Moderate To Severe Pain) Qty: 30 RF: 0 docusate sodium 100 mg Capsule 100 mg PO BID Qty: 60 RF: 0 Continued sertraline [Zoloft] 50 mg tablet 50 mg PO DAILY RF: 0 albuterol sulfate [ProAir HFA] 90 mcg/actuation HFA aerosol inhaler 2 puff inhalation Q6H PRN (Reason: SOB) RF: 0 prednisone 2.5 mg tablet 2.5 mg PO DAILY PRN (Reason: SOB) RF: 0 ibuprofen 800 mg Tablet 800 mg PO TID Qty: 30 RF: 0 Discharge Orders: Discharge Order (Routine); Ordered 02/09/21 Ordered By: Yue Gutierres Patient Instructions: Opioid Safety Discharge Attestations Time Spent in Discharge Care*: less than 30 min Quality Metrics Clinical Quality Measures During this hospital stay, did patient experience: None Coding Level of Care Code Acute g FW [place] note Diagnoses Menorrhagia N92.0 Dysmenorrhea N94.6 Pelvic pain R10.2 Endometriosis N80.9 History of abnormal cervical Pap smear Z87.42
[2021-02-09 10:40] VITALS: BP 109/70; PULSE 71; RESP 16; TEMP 36.5; O2SAT 98
== END 2021-02-09 10:55 | disposition home or self-care (01) ==
LOC: OBGYN 10:27
PROVIDERS: Anesthesiology; Admitting Provider Obstetrics & Gynecology; PCP Nurse Practitioner Family; Visit Provider Obstetrics & Gynecology
PROC: 0UT9FZZ Resection of Uterus, Via Natural or Artificial Opening With Percutaneous Endoscopic Assistance (ICD-10-PCS; CPT 58552; principal; 2021-02-08 07:00)
PROC: (CPT 58661; 2021-02-08 07:00)
DX: N80.9 Endometriosis, unspecified (principal); N94.6 Dysmenorrhea, unspecified; N92.0 Excessive and frequent menstruation with regular cycle; R10.2 Pelvic and perineal pain; J45.909 Unspecified asthma, uncomplicated; F32.A Depression, unspecified; Z84.2 Family history of other diseases of the genitourinary system; Z87.42 Personal history of other diseases of the female genital tract
CPT/HCPCS: 58552; 36415; 80048; 80053; 81025; 84703; 85025; 85027; 87086; 88307; 93005; 96365; 96372; G0378; J0690; J1100; J1885; J2060; J2250; J2405; J2704; J2710; J3010; J3490; J7030

== ENCOUNTER 2022-02-11 09:07 | Emergency (ER) | payer MEDICAID, SELFPAY ==
[2022-02-11] VITALS (12 sets, daily range): BP systolic 95–106; BP diastolic 40–61; PULSE 100–120; RESP 16–20; TEMP 36.8–37.7; O2SAT 97–100
--- NOTE | 2022-02-11 09:22 | ECG_ITS ---
[facility] Test Date: 2022-02-11 Pat Name: Lily Low Department: Room: Gender: Female Cylinder Steamer: : 2000 Requested By: Ryan Cabrera Order Number: [id number] [place] MD: German Ayala M.D. Measurements Intervals [place] Rate: 115 P: 70 LA: 116 QRS: 83 QRSD: 84 T: 52 QT: 319 QTc: 441 Interpretive Statements SINUS TACHYCARDIA WITH SHORT LA INTERVAL Compared to ECG 02/08/2021 12:53:43 Short LA interval now present Sinus rhythm no longer present Electronically Signed On 02-12-2022 19:47:06 MACHINE BANDER AND CELLOPHANER by German Ayala M.D. [id number]
--- NOTE | 2022-02-11 09:26 | PC.NURSE ---
PRIOR TO EKG VERBAL CONSENT OBTAINED AND PPE DAWNED.
--- NOTE | 2022-02-11 09:36 | XRR_ITS ---
PROCEDURE INFORMATION: Exam: XR Chest Exam date and time: 02/11/2022 10:05 AM Age: 21 years old Clinical indication: Cough and dyspnea; Additional info: Dyspnea/cough TECHNIQUE: Imaging protocol: Radiologic exam of the chest. Views: 1 view. COMPARISON: CR XR chest 2V* [id number] 02/15/2021 12:06 PM FINDINGS: Lungs: Unremarkable. No consolidation. Pleural spaces: Unremarkable. No pleural effusion. No pneumothorax. Heart/Mediastinum: Unremarkable. No cardiomegaly. Bones/joints: Unremarkable. XR/XR chest 1V portable [id number] IMPRESSION: No acute findings.
--- NOTE | 2022-02-11 09:52 | ED_ITS ---
HPI - Chest Pain General: Chief Complaint: Chest Pain Stated Complaint: CP, SOB Time Seen by Provider: 02/11/22 09:36 Source: patient Mode of arrival: ambulatory History of Present Illness: 21-year-old female presents emergency room complaining of chest pain and shortness of breath. Symptoms began 4 days ago. She notes when I talked to her that deep inspiration makes it worse I can also reproduce it slightly with palpation along the sternum. Does not radiate into the neck arms or back she is not had any fever no significant cough she has noted some shortness of breath at times. Looking back at her old history she has been anemic in the past. No abdominal pain no dysuria urgency or frequency. No history of DVT patient is not on any hormone contraceptives. MD complaint: chest pain Onset (ago): minute(s) Timing of current episode: constant Pain radiation: none Severity: moderate Quality: sharp Exacerbating factors: inspiration and palpation Associated symptoms: Deny abdominal pain, diaphoresis, dyspnea, fever(s), leg edema, nausea, palpitations, sense of impending doom, syncope or vomiting Treatment prior to arrival: none Review of Systems Const: Denies: fever(s), chills or diaphoresis ENMT: Denies: throat pain, ear or mastoid pain, nasal discharge or nasal congestion Card: Reports: chest pain; Denies: palpitations, irregular heart rhythm, edema, swelling of feet/ankles or syncope Resp: Denies: dyspnea GI: Denies: abdominal pain, nausea or vomiting : Denies: flank pain, difficulty voiding, dysuria, urinary frequency or urin marisol urgency Skin/Breast: Denies: rash or pruritus PFSH ED PFSH: Medical History (Updated 02/11/22 @ 14:23 by Ryan Chavez DO) Anxiety Asthma exacerbation Depression History of abnormal cervical Pap smear History of depression Left ovarian cyst Redundant colon Surgical History (Updated 02/11/22 @ 11:11 by Ryan Chavez DO) H/O hysterectomy with oophorectomy History of appendectomy Family History Mother Raynaud's syndrome Scleroderma CHF (congestive heart failure) Endometriosis Cancer chronic lymphatic leukemia Hypertension Grandmother Cancer acute lymphatic leukemia and lung leukemia--Maternal Grandfather Cancer Maternal--prostate Denies family history of Diabetes CAD (coronary artery disease) Clotting disorder Hyperlipidemia Chronic kidney disease (CKD) Bleeding disorder Stroke Female Reproductive History: Date of last menstrual period: 05/17/19 Physical Exam Const: GENERAL APPEARANCE: cooperative and comfortable ORIENTATION/CONSCIOUSNESS: Yes awake, Yes oriented to person, Yes oriented to place and Yes oriented to time HENMT: COMMON NORMALS: normocephalic, atraumatic and hearing grossly normal bilaterally HEAD & SCALP: normocephalic and atraumatic Chest: CHEST: Yes tenderness sternum Resp: COMMON NORMALS: normal respiratory effort, No retractions, No use of accessory muscles and clear to auscultation bilaterally AUSCULTATION: clear to auscultation bilaterally Cardio: COMMON NORMALS: regular rate, regular rhythm and No murmurs present (Cardio) RATE: regular rate RHYTHM: regular rhythm GI: COMMON NORMALS: Soft to palpation and No hepatosplenomegaly present AUSCULTATION: Yes normoactive bowel sounds PALPATION: Yes Soft to palpation, No Tenderness to palpation present (GI), No Guarding due to palpation present (GI) and Yes No hepatosplenomegaly present Extremity: COMMON NORMALS: normal to inspection, capillary refill normal, no clubbing, cyanosis or edema, no calf tenderness and no pedal edema Neuro: SENSORIUM/ORIENTATION: Yes oriented to person, Yes oriented to place and Yes oriented to time Skin: COMMON NORMALS: no rashes or lesions noted GENERAL SKIN EXAM: no rashes or lesions noted Course Vital Signs: Vital signs: Vital Signs Temperature 98.4 F 02/11/22 14:56 Pulse Rate 104 H 02/11/22 15:44 Respiratory Rate 18 02/11/22 15:44 Blood Pressure 104/61 02/11/22 15:44 Pulse Oximetry 100 02/11/22 15:44 Oxygen Delivery Me thod 02/11/22 14:59 MDM - Chest Pain Medical Decision Making She does not have any noticeable bleeding. She is previously had a hysterectomy. No hematochezia or melena. Patient was transfused 1 unit packed red blood cells. Her hemoglobin initially was 6 6 anemia labs were ordered. We will discharge her home and have her follow-up with hematology oncology for further evaluation. She previously has been treated for iron deficiency suspect she may have a mixed B12 folate and iron deficiency at this time. CTA was done because of elevated D-dimer which was negative. Medical Records I reviewed the patient's medical records. Lab Data I reviewed the patient's lab results. 02/11/22 10:25 Radiology Impressions Chest X-Ray 02/11/22 09:36 IMPRESSION: No acute findings. Chest CTA 02/11/22 11:05 IMPRESSION: 1. No acute abnormality in the chest. No evidence of pulmonary embolus. 2. Splenomegaly. 3. Cholelithiasis. Laboratory Results WBC 8.6 10^3/uL (4.0-10.0) 02/11/22 10:25 RBC 2.43 10^6/uL (4.1-5.3) L 02/11/22 10:25 Hgb 6.6 g/dL (11.5-15.3) L 02/11/22 10:25 Hct 19.8 % (37.0-47.0) L* 02/11/22 10:25 MCV 81.5 fl (81-99) 02/11/22 10:25 MCH 27.2 pg (28.0-34.0) L 02/11/22 10:25 MCHC 33.3 g/dL (30.0-36.0) 02/11/22 10:25 RDW 21.7 % (12.1-15.1) H 02/11/22 10:25 Plt Count 186 10^3/cmm (130-400) 02/11/22 10:25 MPV 10.7 fL (7.4-10.4) H 02/11/22 10:25 Neut % (Auto) 48.4 % 02/11/22 10:25 Lymph % (Auto) 43.2 % 02/11/22 10:25 [place] % (Auto) 4.2 % 02/11/22 10:25 Eos % (Auto) 1.3 % 02/11/22 10:25 Baso % (Auto) 0.6 % 02/11/22 10:25 Reticulocyte % (Auto) 16.7 % (0.5-2.0) H 02/11/22 10:25 Neut # (Auto) 4.16 10^3/uL (1.8-7.7) 02/11/22 10:25 Lymph # (Auto) 3.7 10^3/uL (0.8-4.8) 02/11/22 10:25 [place] # (Auto) 0.4 10^3/uL (0.2-0.9) 02/11/22 10:25 Eos # (Auto) 0.1 10^3/uL (0.0-0.8) 02/11/22 10:25 Baso # (Auto) 0.1 10^3/uL (0.0-0.1) 02/11/22 10:25 Nucleated RBC % (auto) 0.6 % 02/11/22 10:25 Nucleated RBCs # 0.1 /100WBC 02/11/22 10:25 Haptoglobin 10.0 mg/L (30-200) L 02/11/22 13:25 D-Dimer 2.07 ug/mIFEU (0-0.59) H 02/11/22 10:25 Sodium 129 mmol/L (136-145) L 02/11/22 13:25 Potassium 3.5 mmol/L (3.5-5.1) 02/11/22 13:25 Chloride 96 mmol/L (98-107) L 02/11/22 13:25 Carbon Dioxide 21 mmol/L (22-29) L 02/11/22 13:25 Anion Gap 15.5 (5-19) 02/11/22 13:25 BUN 5 mg/dL (6-20) L 02/11/22 13:25 Creatinine 0.4 mg/dL (0.5-0.9) L 02/11/22 13:25 GFR Calculation 197.8 mL/min (90-130) H 02/11/22 13:25 Glucose 82 mg/dL (65-115) 02/11/22 13:25 Calculated Osmolality 264 mOsm/kg (285-295) L 02/11/22 13:25 Calcium 7.9 mg/dL (8.5-10.5) L 02/11/22 13:25 Iron 41 ug/dL (37-145) 02/11/22 13:25 TIBC 192 mcg/dl 02/11/22 13:25 % Saturation 21.3 % (20-50) 02/11/22 13:25 Unsat Iron Binding 151 ug/dL (112-347) 02/11/22 13:25 Ferritin 342 ng/mL (15-150) H 02/11/22 13:25 Vitamin B12 224 pg/mL (232-1245) L 02/11/22 13:25 Folate 9.4 ng/mL (4.8-37.3) 02/11/22 11:20 HCG, Qual Negative (Negative) 02/11/22 11:20 Influenza Type A Ag negative (Negative) 02/11/22 10:25 Influenza Type B Ag negative (Negative) 02/11/22 10:25 Blood Type O Positive 02/11/22 11:20 Rho(D) Type Positive 02/11/22 11:20 Antibody Screen Negative 02/11/22 11:20 Crossmatch See Detail 02/11/22 11:20 Discharge Plan Discharge Patient Disposition: Home Clinical Impression: Anemia Condition: Stable Prescriptions: No Action No Known Home Medications Discharge Orders: Discharge ED (Routine); Ordered 02/11/22 Ordered By: Ryan Chavez Referrals: Lizeth Porter FNP [Primary Care Provider] - Discharge Diet: Usual diet Discharge Activity: Resume usual activity Patient Instructions: Opioid Safety, Pain Management Activity Restrictions/Additional Instructions: You were noted to have significant anemia today. However your white cells and your platelet counts were in the normal ranges. You were given a unit of packed red blood cells. Case management make arrangements for you to follow-up with hematology oncology to further evaluate your anemia. Coding Level of Care Code ED [employer] for Isabel Fwd Exam Comprehensive
[2022-02-11 10:32] LABS: Basophils # 0.1 10^3/uL (0.0-0.1); Basophils % 0.6 %; Eosinophils # 0.1 10^3/uL (0.0-0.8); Eosinophils % 1.3 %; Hemoglobin 6.6 g/dL (11.5-15.3); Lymphocytes # 3.7 10^3/uL (0.8-4.8); Lymphocytes % 43.2 %; Mean Corpuscular HGB Conc 33.3 g/dL (30.0-36.0); Mean Corpuscular Hemoglobin 27.2 pg (28.0-34.0); Mean Corpuscular Volume 81.5 fl (81-99); Mean Platelet Volume 10.7 fL (7.4-10.4); Monocytes # 0.4 10^3/uL (0.2-0.9); Monocytes % 4.2 %; Neutrophils # 4.16 10^3/uL (1.8-7.7); Neutrophils % 48.4 %; Nucleated Red Blood Cells # 0.1 /100WBC; Nucleated Red Blood Cells % 0.6 %; Platelet Count 186 10^3/cmm (130-400); Red Blood Count 2.43 10^6/uL (4.1-5.3); Red Cell Distribution Width 21.7 % (12.1-15.1); White Blood Count 8.6 10^3/uL (4.0-10.0)
[2022-02-11 10:46] LABS: Influenza A by IFA negative (Negative); Influenza B by IFA negative (Negative)
[2022-02-11 10:57] LABS: D Dimer 2.07 ug/mIFEU (0-0.59)
--- NOTE | 2022-02-11 11:05 | CTR_ITS ---
PROCEDURE INFORMATION: Exam: CTA Chest With Contrast Exam date and time: 02/11/2022 12:08 PM Age: 21 years old Clinical indication: Pain; Angina pectoris; Additional info: Dyspnea chest pain, elevated d dimer TECHNIQUE: Imaging protocol: Computed tomographic angiography of the chest with contrast. 3D rendering (Not supervised by radiologist): MIP and/or 3D reconstructed images were created by the technologist. Radiation optimization: All CT scans at this facility use at least one of these dose optimization techniques: automated exposure control; mA and/or kV adjustment per patient size (includes targeted exams where dose is matched to clinical indication); or iterative reconstruction. Contrast material: OMNI 350; Contrast volume: 62 ml; Contrast route: INTRAVENOUS (IV); COMPARISON: CR (CHEST, ) 02/11/2022 10:05 AM RADIATION DOSE METRICS: Total DLP (mGy-cm): 204.55 FINDINGS: Pulmonary arteries: Normal. No pulmonary emboli. Aorta: Unremarkable. No aortic aneurysm. No aortic dissection. Lungs: Unremarkable. No consolidation. No masses. Pleural spaces: Unremarkable. No pneumothorax. No pleural effusion. Heart: Unremarkable. No cardiomegaly. No pericardial effusion. Lymph nodes: Unremarkable. No enlarged lymph nodes. Gallbladder and bile ducts: Cholelithiasis. Spleen: Splenomegaly. Bones/joints: Unremarkable. No acute fracture. Soft tissues: Unremarkable. CT/CT angio chest PE protcl [id number] IMPRESSION: 1. No acute abnormality in the chest. No evidence of pulmonary embolus. 2. Splenomegaly. 3. Cholelithiasis.
[2022-02-11 11:06] LABS: Slide Review Slide Review Perform
[2022-02-11 11:07] LABS: Hematocrit 19.8 % (37.0-47.0)
[2022-02-11 11:40] LABS: HCG, Serum Qual Negative (Negative)
[2022-02-11] MEDS: iohexol 350 mg/mL 500 mL Btl (per mL) IV (12:13)
[2022-02-11] MEDS: acetaminophen 1,000 MG/100 ML PIGGYBACK 400 MG IV (12:29)
[2022-02-11] MEDS: diphenhydrAMINE 50 mg/mL SDV 1mL IVP (13:00)
[2022-02-11] MEDS: sodium chloride 0.9% 1,000 ML 999 ML IV (13:38)
[2022-02-11 14:37] LABS: Reticulocyte % 16.7 % (0.5-2.0)
[2022-02-11 15:13] LABS: Folate Level 9.4 ng/mL (4.8-37.3)
[2022-02-11 15:18] LABS: Anion Gap 15.5 (5-19); Blood Urea Nitrogen 5 mg/dL (6-20); Calcium 7.9 mg/dL (8.5-10.5); Carbon Dioxide 21 mmol/L (22-29); Chloride 96 mmol/L (98-107); Glomerular Filtration Rate 197.8 mL/min (90-130); Glucose 82 mg/dL (65-115); Osmolality Calculated 264 mOsm/kg (285-295); Potassium 3.5 mmol/L (3.5-5.1); Sodium 129 mmol/L (136-145)
[2022-02-11 15:19] LABS: Ferritin 342 ng/mL (15-150); Iron 41 ug/dL (37-145); Percent Saturation 21.3 % (20-50); Total Iron Binding Capacity 192 mcg/dl; Unsaturated Iron Binding 151 ug/dL (112-347)
[2022-02-11 15:34] LABS: Vitamin B12 224 pg/mL (232-1245)
[2022-02-14 16:23] LABS: Erythropoietin 676.7 mIU/mL (2.6-18.5)
--- NOTE | 2022-02-15 15:15 | DCPLANNER ---
Addendum entered by Betzaida Saldana 03/02/22 10:55: this appointment was cancelled Original Note: plant hr manager had message to schedule a follow up appointment for patient with hematology. plant hr manager called Roxane at [facility], retail merchandising coordinator, gave clinic patients information. A follow up appointment was scheduled for Sunday February 27, 2022 at 4:[address] Warner. Clinic will call patient with appointment information.
== END 2022-02-11 15:45 | disposition home or self-care (01) ==
PROVIDERS: Emergency Provider Family Medicine; PCP Nurse Practitioner Family
DX: D64.9 Anemia, unspecified (principal)
CPT/HCPCS: 36430; 71045; 71275; 80048; 82607; 82668; 82728; 82746; 83010; 83540; 83550; 84703; 85025; 85045; 85378; 86850; 86900; 86920; 87804; 93005; 96374; 96375; 99285; J0131; J1200; J7030; P9016; Q9967

== ENCOUNTER → 2022-05-09 10:32 | Outpatient (BNVA) | payer MEDICAID, SELFPAY | PROVIDERS: PCP Nurse Practitioner Family; Visit Provider Registered Nurse | DX: R31.9 Hematuria, unspecified (principal); F41.9 Anxiety disorder, unspecified; Z76.89 Persons encountering health services in other specified circumstances; N39.0 Urinary tract infection, site not specified | CPT/HCPCS: 81000; 87086; 87106 ==

== ENCOUNTER → 2022-09-05 10:47 | Outpatient (BNVA) | payer MEDICAID, SELFPAY | PROVIDERS: PCP Nurse Practitioner Family; Visit Provider Registered Nurse | DX: R39.9 Unspecified symptoms and signs involving the genitourinary system (principal); R10.9 Unspecified abdominal pain | CPT/HCPCS: 81000; 87077; 87086; 87184 ==

== ENCOUNTER → 2022-09-18 10:08 | Outpatient (BNVA) | payer MEDICAID, SELFPAY | PROVIDERS: PCP Registered Nurse; Visit Provider Registered Nurse | DX: D64.9 Anemia, unspecified (principal); R42 Dizziness and giddiness | CPT/HCPCS: 80053; 81000; 82306; 82607; 82728; 83550; 85025 ==

== ENCOUNTER 2022-10-31 20:00 | Outpatient (CLI) | payer MEDICAID, SELFPAY | END 2022-10-31 20:01 | disposition home or self-care (01) | LOC: SLEEP 11-01 05:36 | PROVIDERS: PCP Registered Nurse; Visit Provider Registered Nurse | DX: G47.33 Obstructive sleep apnea (adult) (pediatric) (principal) | CPT/HCPCS: 95810 ==

== ENCOUNTER 2022-11-27 10:26 | Emergency (ER) | payer MEDICAID, SELFPAY ==
--- NOTE | 2022-11-27 10:28 | XR_ITS ---
WS: [id number] XR hand RT min 3V* [id number] REASON FOR EXAM: pain FINDINGS: No fracture or focal bone lesion. No erosions or periosteal reaction. Joint spaces are intact and well preserved. No soft tissue abnormality. IMPRESSION: No significant abnormality.
[2022-11-27 10:50] VITALS: BP 115/81; PULSE 92; TEMP 37.2; O2SAT 99; BMI 23.7
--- NOTE | 2022-11-27 11:06 | ED_ITS ---
HPI - Extremity Problem General: Chief complaint: Extremity Problem,Nontraumatic Stated complaint: very bad pain in right hand Time Seen by Provider: 11/27/22 10:29 History of Present Illness: 22-year-old female with a history of asthma, depression and anxiety presents emergency room with right hand pain for the past 2 months but noticed increased pain and swelling with some redness within the past few days. Patient noticed increased pain and swelling on Sunday and described the pain as throbbing sensation with severity of 9 out of 10. Patient has any injury, fall, history of drug abuse, numbness or tingling to the fingers. Cannot describe the pain mostly at the base of the fifth finger. Increased pain with making fist and range of motion of the fingers. Associated symptoms: Reports fever(s) Review of Systems General: Reports: 10 or more systems reviewed and unremarkable except in HPI and below Const: Reports: fever(s); Denies: chills, body aches, change in appetite, change in weight, fatigue, malaise or night sweats Resp: Denies: dyspnea, productive cough, non-productive cough, wheezing, stridor or pain on inspiration Musc: Reports: extremity pain, extremity swelling, joint swelling and limited range of motion PFSH ED PFSH: Medical History Anxiety Asthma exacerbation Depression History of abnormal cervical Pap smear History of depression Left ovarian cyst Redundant colon Surgical History H/O hysterectomy with oophorectomy History of appendectomy Hx of splenectomy Family History Mother Raynaud's syndrome Scleroderma CHF (congestive heart failure) Endometriosis Cancer chronic lymphatic leukemia Hypertension Grandmother Cancer acute lymphatic leukemia and lung leukemia--Maternal Grandfather Cancer Maternal--prostate Denies family history of Diabetes CAD (coronary artery disease) Clotting disorder Hyperlipidemia Chronic kidney disease (CKD) Bleeding disorder Stroke Social History Smoking and tobacco status: current every day smoker Second hand smoke exposure: No Alcohol intake: former Substance/Drug Use: never Desire information about substance/drug rehabilitation?: No Counseling given: No Adopted: No Lives independently: Yes Do you think of yourself as: Straight/Heterosexual Current gender identity: Female Physical Exam Const: COMMON NORMALS: no acute distress, average body habitus, patient oriented x3, no limitations, healthy appearing, alert and well nourished HENMT: COMMON NORMALS: normocephalic, atraumatic, hearing grossly normal bilaterally, external ears normal, EAC's normal, TM's normal bilaterally, Normal external nose present, Normal nasal mucous membranes and turbinates present, moist oral mucous membranes, oropharynx normal, dentition normal and gingiva normal HEAD & SCALP: normocephalic and atraumatic NOSE: Normal external nose present and Normal nasal mucous membranes and turbinates present EXTERNAL EAR: Yes external ears normal EXTERNAL AUDITORY CANAL: EAC's normal TYMPANIC MEMBRANE: TM's normal bilaterally Neck/C-Spine: COMMON NORMALS: no JVD Chest: COMMONS NORMALS: normal inspection of the chest, normal palpation of entire chest wall, normal inspection of the breasts and normal palpation of the breasts Breast/axilla inspection: Yes normal inspection of the breasts BREAST/AXILLA PALPATION: Yes normal palpation of the breasts Resp: COMMON NORMALS: normal respiratory effort, No retractions, No use of accessory muscles, clear to auscultation bilaterally and percussion normal AUSCULTATION: clear to auscultation bilaterally PERCUSSION: percussion normal Cardio: COMMON NORMALS: no JVD, regular rate (92), regular rhythm, S1 normal heart sound present and S2 normal heart sound present PALPATION: normal PMI RATE: regular rate (92) RHYTHM: regular rhythm HEART SOUNDS: S1 normal heart sound present and S2 normal heart sound present GI: COMMON NORMALS: Normal to inspection, nondistended, normoactive bowel sounds present, Soft to palpation, non-tender, No hepatosplenomegaly present, no masses and no bruits PALPATION: Yes Soft to palpation and Yes No hepatosplenomegaly present Extremity: OTHER: Right hand with some mild swelling and redness at the base of the fifth digit on the right. With range of motion. No open wound, rash or lesion. Patient with brisk capillary refills at the fingers. Neuro: COMMON NORMALS: patient oriented x3 SENSORIUM/ORIENTATION: Yes alert Skin: COMMON NORMALS: no rashes or lesions noted, no wounds, turgor normal, no jaundice, no petechiae and no mottling GENERAL SKIN EXAM: no rashes or lesi ons noted and turgor normal Course Vital Signs: Vital signs: Vital Signs Temperature 98.2 F 11/27/22 11:40 Pulse Rate 102 H 11/27/22 12:41 Respiratory Rate 16 11/27/22 12:28 Blood Pressure 115/71 11/27/22 12:41 Pulse Oximetry 98 11/27/22 12:41 Oxygen Delivery Me thod Room Air 11/27/22 12:28 MDM - Extremity (Nontraumatic) Medical Decision Making Patient made comfortable emergency room and had extensive work-up done including CBC, CMP sed rate and x-ray. X-ray reviewed and discussed with patient at length I discussed lab finding with the patient. Patient was given oral antibiotics in the emergency room. Patient will be discharged home on oral antibiotics and steroid and close follow-up with orthopedics in the next few day s. Differential Diagnosis Likely gout and cellulitis (Abscess, osteoarthritis arthritis) Lab Data 11/27/22 11:20 11/27/22 11:20 Laboratory Results WBC 11.45 10^3/uL (3.29-11.43) H 11/27/22 11:20 RBC 5.65 10^6/uL (3.85-5.65) 11/27/22 11:20 Hgb 15.30 g/dL (11.27-16.99) 11/27/22 11:20 Hct 45.0 % (36-47) 11/27/22 11:20 MCV 79.6 fl (85-98) L 11/27/22 11:20 MCH 27.1 pg (27-33) 11/27/22 11:20 MCHC 34.0 g/dL (30-55) 11/27/22 11:20 RDW 12.7 % (12.1-15.1) 11/27/22 11:20 Plt Count 540 10^3/cmm (157-399) H 11/27/22 11:20 MPV 9.1 fL (7.4-10.4) 11/27/22 11:20 Neut % (Auto) 44.7 % 11/27/22 11:20 Lymph % (Auto) 43.7 % 11/27/22 11:20 [place] % (Auto) 8.9 % 11/27/22 11:20 Eos % (Auto) 2.0 % 11/27/22 11:20 Baso % (Auto) 0.4 % 11/27/22 11:20 Neut # (Auto) 5.12 10^3/uL (1.8-7.7) 11/27/22 11:20 Lymph # (Auto) 5.0 10^3/uL (0.8-4.8) H 11/27/22 11:20 [place] # (Auto) 1.0 10^3/uL (0.2-0.9) H 11/27/22 11:20 Eos # (Auto) 0.2 10^3/uL (0.0-0.8) 11/27/22 11:20 Baso # (Auto) 0.1 10^3/uL (0.0-0.1) 11/27/22 11:20 Nucleated RBC % (auto) 0 % 11/27/22 11:20 Nucleated RBCs # 0.0 /100WBC 11/27/22 11:20 ESR 4 mm/hr (0-15) 11/27/22 11:20 Sodium 140 mmol/L (136-145) 11/27/22 11:20 Potassium 3.7 mmol/L (3.5-5.1) 11/27/22 11:20 Chloride 104 mmol/L (98-107) 11/27/22 11:20 Carbon Dioxide 28 mmol/L (22-29) 11/27/22 11:20 Anion Gap 11.7 (5-19) 11/27/22 11:20 BUN 6 mg/dL (6-20) 11/27/22 11:20 Creatinine 0.5 mg/dL (0.5-0.9) 11/27/22 11:20 GFR Calculation 151.6 mL/min (90-130) H 11/27/22 11:20 Glucose 100 mg/dL (65-115) 11/27/22 11:20 Calculated Osmolality 288 mOsm/kg (285-295) 11/27/22 11:20 Uric Acid 3.1 mg/dL (2.4-5.7) 11/27/22 11:20 Calcium 8.9 mg/dL (8.5-10.5) 11/27/22 11:20 Total Bilirubin 0.3 mg/dL (0.15-1.2) 11/27/22 11:20 AST 19 U/L (0-32) 11/27/22 11:20 ALT 12 U/L (0-33) 11/27/22 11:20 Alkaline Phosphatase 74 U/L (35-105) 11/27/22 11:20 Total Protein 7.8 g/dL (6.6-8.7) 11/27/22 11:20 Albumin 4.4 g/dL (3.5-5.2) 11/27/22 11:20 Globulin 3.4 g/dL (1.3-4.6) 11/27/22 11:20 XR interpretation done by ED provider, pending radiology final review Discharge Plan Discharge Patient Disposition: Home Clinical Impression: Arthritis pain, hand, Hand pain Condition: Stable Prescriptions: New Bactrim DS 800-160 mg tablet 1 tab PO BID 10 Days Qty: 20 0RF Medrol (Timoteo) 4 mg tablets,dose pack 4 mg PO DAILY Qty: 21 0RF naproxen 500 mg tablet 500 mg PO BID PRN (Reason: pain) Qty: 20 0RF No Action sertraline 100 mg tablet 100 mg PO DAILY Qty: 90 0RF Rx Instructions: take 1 tablet daily buspirone 30 mg tablet 30 mg PO ONCE hydroxyzine HCl 25 mg tablet 25 mg PO BID PRN (Reason: Anxiety) nicotine 21-14-7 mg/24 hr patch, TD daily, sequential See Rx Instructions transdermal .COMPLEX Qty: 56 0RF Rx Instructions: apply 1-21 mg NICOTINE PATCH daily for 28 days; follow with 1-14 mg PATCH daily for 14 days, then 1-7mg PATCH daily for 14 days transdermal Aspir-Low 81 mg Tablet,Delayed Release (Dr/Ec) 81 mg PO DAILY Discharge Orders: Discharge ED (Routine); Ordered 11/27/22 Ordered By: Leonides Gallego Referrals: Vida Davis MD [Physician] - 1-3 days Nancy Luna FNP [Primary Care Provider] - Discharge Diet: Advance as tolerated Discharge Activity: Resume usual activity Patient Instructions: Opioid Safety, Pain Management Coding Level of Care Code ED [employer] for Isabel Keating
[2022-11-27 11:33] LABS: Basophils # 0.1 10^3/uL (0.0-0.1); Basophils % 0.4 %; Eosinophils # 0.2 10^3/uL (0.0-0.8); Lymphocytes % 43.7 %; Mean Corpuscular Hemoglobin 27.1 pg (27-33); Mean Corpuscular Volume 79.6 fl (85-98); Mean Platelet Volume 9.1 fL (7.4-10.4); Monocytes % 8.9 %; Neutrophils # 5.12 10^3/uL (1.8-7.7); Neutrophils % 44.7 %; Nucleated Red Blood Cells % 0 %; Platelet Count 540 10^3/cmm (157-399); Red Blood Count 5.65 10^6/uL (3.85-5.65); Red Cell Distribution Width 12.7 % (12.1-15.1); White Blood Count 11.45 10^3/uL (3.29-11.43)
[2022-11-27] MEDS: ketorolac 30 mg/mL INJ IVP (11:33)
[2022-11-27 11:37] VITALS: BP 108/71; PULSE 96; RESP 15; O2SAT 96
[2022-11-27 11:37] LABS: Erythrocyte Sedimentation Rate 4 mm/hr (0-15)
[2022-11-27 11:40] VITALS: BP 111/72; PULSE 133; RESP 16; TEMP 36.8; O2SAT 99; BMI 23.8
--- NOTE | 2022-11-27 11:48 | ECG_ITS ---
[facility] Test Date: 2022-11-27 Pat Name: Lily Low Department: Room: Gender: Female Transcription Manager: : 2000 Requested By: Leonides Sheth Order Number: [id number] [place] MD: Genoveva Mcdonald M.D. Measurements Intervals [place] Rate: 90 P: 49 TN: 153 QRS: 71 QRSD: 81 T: 48 QT: 346 QTc: 425 Interpretive Statements SINUS RHYTHM Compared to ECG 02/11/2022 09:26:13 Sinus tachycardia no longer present Short TN interval no longer present Electronically Signed On 11-27-2022 21:29:59 CDT by Genoveva Mcdonald M.D. [id number]
[2022-11-27 11:52] LABS: Alanine Aminotransferase 12 U/L (0-33); Albumin Level 4.4 g/dL (3.5-5.2); Alkaline Phosphatase 74 U/L (35-105); Anion Gap 11.7 (5-19); Aspartate Amino Transferase 19 U/L (0-32); Blood Urea Nitrogen 6 mg/dL (6-20); Calcium 8.9 mg/dL (8.5-10.5); Carbon Dioxide 28 mmol/L (22-29); Chloride 104 mmol/L (98-107); Globulin 3.4 g/dL (1.3-4.6); Glomerular Filtration Rate 151.6 mL/min (90-130); Glucose 100 mg/dL (65-115); Osmolality Calculated 288 mOsm/kg (285-295); Potassium 3.7 mmol/L (3.5-5.1); Sodium 140 mmol/L (136-145); Total Bilirubin 0.3 mg/dL (0.15-1.2); Total Protein 7.8 g/dL (6.6-8.7); Uric Acid 3.1 mg/dL (2.4-5.7)
[2022-11-27 12:00] VITALS: BP 125/75; PULSE 105; RESP 16; O2SAT 96
[2022-11-27] MEDS: clindamycin 150 mg Capsule 300 MG PO (12:27)
[2022-11-27 12:28] VITALS: BP 123/74; PULSE 104; RESP 16; O2SAT 98
[2022-11-27 12:41] VITALS: BP 115/71; PULSE 102; O2SAT 98
--- NOTE | 2022-12-25 23:39 | W.ED.EXTPRO ---
HPI - Extremity Problem General: Chief complaint: Extremity Problem,Nontraumatic Stated complaint: very bad pain in right hand Time Seen by Provider: 11/27/22 10:29 History of Present Illness: This is an addendum and correction to previous HPI. Again this is a 22-year-old female with a history of asthma, depression, anxiety who presents emergency room with right hand pain for the past 2 months. Patient noticed increased pain and swelling with some redness within the past few days. Patient states increased pain on Sunday and described the pain as throbbing sensation with severity 9 out of 10. Patient denies any injury, fall, history of drug abuse, numbness or tingling to the fingers. Patient describes the pain mostly at the base of the fifth finger. Creased pain with making fist and range of motion of the finger. Review of Systems General: Reports: 10 or more systems reviewed and unremarkable except in HPI and below PFS ED PFSH: Medical History Anxiety Asthma exacerbation Depression History of abnormal cervical Pap smear History of depression Left ovarian cyst Redundant colon Surgical History H/O hysterectomy with oophorectomy History of appendectomy Hx of splenectomy Family History Mother Raynaud's syndrome Scleroderma CHF (congestive heart failure) Endometriosis Cancer chronic lymphatic leukemia Hypertension Grandmother Cancer acute lymphatic leukemia and lung leukemia--Maternal Grandfather Cancer Maternal--prostate Denies family history of Diabetes CAD (coronary artery disease) Clotting disorder Hyperlipidemia Chronic kidney disease (CKD) Bleeding disorder Stroke Social History Smoking and tobacco/nicotine status: current every day tobacco/nicotine user Second hand smoke exposure: No Alcohol intake: former Substance/Drug Use: never Adopted: No Lives independently: Yes Do you think of yourself as: Straight/Heterosexual Current gender identity: Female Physical Exam Extremity: OTHER: Right hand with some mild swelling and redness at the base of the fifth digit on the right. Some pain with range of motion. No open wound, rash or lesion noted. Patient with brisk capillary refills at the fingers. Course Vital Signs: Vital signs: Vital Signs Temperature 98.2 F 11/27/22 11:40 Pulse Rate 102 H 11/27/22 12:41 Respiratory Rate 16 11/27/22 12:28 Blood Pressure 115/71 11/27/22 12:41 Pulse Oximetry 98 11/27/22 12:41 Oxygen Delivery Me thod Room Air 11/27/22 12:28 MDM - Extremity (Nontraumatic) Medical Decision Making Patient was made comfortable emergency room and had extensive work-up done. Patient will be given referral to see orthopedic. Lab Data 11/27/22 11:20 11/27/22 11:20 Laboratory Results WBC 11.45 10^3/uL (3.29-11.43) H 11/27/22 11:20 RBC 5.65 10^6/uL (3.85-5.65) 11/27/22 11:20 Hgb 15.30 g/dL (11.27-16.99) 11/27/22 11:20 Hct 45.0 % (36-47) 11/27/22 11:20 MCV 79.6 fl (85-98) L 11/27/22 11:20 MCH 27.1 pg (27-33) 11/27/22 11:20 MCHC 34.0 g/dL (30-55) 11/27/22 11:20 RDW 12.7 % (12.1-15.1) 11/27/22 11:20 Plt Count 540 10^3/cmm (157-399) H 11/27/22 11:20 MPV 9.1 fL (7.4-10.4) 11/27/22 11:20 Neut % (Auto) 44.7 % 11/27/22 11:20 Lymph % (Auto) 43.7 % 11/27/22 11:20 [place] % (Auto) 8.9 % 11/27/22 11:20 Eos % (Auto) 2.0 % 11/27/22 11:20 Baso % (Auto) 0.4 % 11/27/22 11:20 Neut # (Auto) 5.12 10^3/uL (1.8-7.7) 11/27/22 11:20 Lymph # (Auto) 5.0 10^3/uL (0.8-4.8) H 11/27/22 11:20 [place] # (Auto) 1.0 10^3/uL (0.2-0.9) H 11/27/22 11:20 Eos # (Auto) 0.2 10^3/uL (0.0-0.8) 11/27/22 11:20 Baso # (Auto) 0.1 10^3/uL (0.0-0.1) 11/27/22 11:20 Nucleated RBC % (auto) 0 % 11/27/22 11:20 Nucleated RBCs # 0.0 /100WBC 11/27/22 11:20 ESR 4 mm/hr (0-15) 11/27/22 11:20 Sodium 140 mmol/L (136-145) 11/27/22 11:20 Potassium 3.7 mmol/L (3.5-5.1) 11/27/22 11:20 Chloride 104 mmol/L (98-107) 11/27/22 11:20 Carbon Dioxide 28 mmol/L (22-29) 11/27/22 11:20 Anion Gap 11.7 (5-19) 11/27/22 11:20 BUN 6 mg/dL (6-20) 11/27/22 11:20 Creatinine 0.5 mg/dL (0.5-0.9) 11/27/22 11:20 GFR Calculation 151.6 mL/min (90-130) H 11/27/22 11:20 Glucose 100 mg/dL (65-115) 11/27/22 11:20 Calculated Osmolality 288 mOsm/kg (285-295) 11/27/22 11:20 Uric Acid 3.1 mg/dL (2.4-5.7) 11/27/22 11:20 Calcium 8.9 mg/dL (8.5-10.5) 11/27/22 11:20 Total Bilirubin 0.3 mg/dL (0.15-1.2) 11/27/22 11:20 AST 19 U/L (0-32) 11/27/22 11:20 ALT 12 U/L (0-33) 11/27/22 11:20 Alkaline Phosphatase 74 U/L (35-105) 11/27/22 11:20 Total Protein 7.8 g/dL (6.6-8.7) 11/27/22 11:20 Albumin 4.4 g/dL (3.5-5.2) 11/27/22 11:20 Globulin 3.4 g/dL (1.3-4.6) 11/27/22 11:20 All radiology interpretation(s) finalized by discharge Discharge Plan Discharge Patient Disposition: Home Clinical Impression: Arthritis pain, hand, Hand pain Condition: Stable Prescriptions: New Medrol (Timoteo) 4 mg tablets,dose pack 4 mg PO DAILY Qty: 21 0RF naproxen 500 mg tablet 500 mg PO BID PRN (Reason: pain) Qty: 20 0RF No Action gabapentin 100 mg capsule 100 mg PO BID 30 Days Qty: 60 2RF sertraline 100 mg tablet 100 mg PO DAILY Qty: 90 0RF Rx Instructions: take 1 tablet daily buspirone 30 mg tablet 30 mg PO ONCE hydroxyzine HCl 25 mg tablet 25 mg PO BID PRN (Reason: Anxiety) nicotine 21-14-7 mg/24 hr patch, TD daily, sequential See Rx Instructions transdermal .COMPLEX Qty: 56 0RF Rx Instructions: apply 1-21 mg NICOTINE PATCH daily for 28 days; follow with 1-14 mg PATCH daily for 14 days, then 1-7mg PATCH daily for 14 days transdermal Aspir-Low 81 mg Tablet,Delayed Release (Dr/Ec) 81 mg PO DAILY Discharge Orders: Discharge ED (Routine); Ordered 11/27/22 Ordered By: Leonides Gallego Referrals: Vida Davis MD [Physician] - 1-3 days Nancy Luna FNP [Primary Care Provider] - Discharge Diet: Advance as tolerated Discharge Activity: Resume usual activity Patient Instructions: Opioid Safety, Pain Management Coding Level of Care Code ED Harness Repairer for Isabel Keating
== END 2022-11-27 12:42 | disposition home or self-care (01) ==
PROVIDERS: Emergency Provider Family Medicine; PCP Registered Nurse
DX: M19.041 Primary osteoarthritis, right hand (principal); F17.210 Nicotine dependence, cigarettes, uncomplicated; Z79.82 Long term (current) use of aspirin
CPT/HCPCS: 36415; 73130; 80053; 84550; 85025; 85651; 93005; 96374; 99285; J1885

== ENCOUNTER → 2023-02-05 08:58 | Outpatient (BNVA) | payer MEDICAID, SELFPAY | PROVIDERS: PCP Registered Nurse; Visit Provider Nurse Practitioner | DX: M25.541 Pain in joints of right hand; R20.0 Anesthesia of skin; R20.2 Paresthesia of skin; Z86.2 Personal history of diseases of the blood and blood-forming organs and certain disorders involving the immune mechanism; M25.542 Pain in joints of left hand | CPT/HCPCS: 73130 ==

== ENCOUNTER → 2023-03-16 14:21 | Outpatient (BNVA) | payer MEDICAID, SELFPAY | PROVIDERS: PCP Registered Nurse; Visit Provider Specialist | DX: M79.641 Pain in right hand (principal) | CPT/HCPCS: 36415; 80053; 85025; 85651; 86038; 86140; 86431 ==

== ENCOUNTER 2023-06-07 10:35 | Outpatient (CLI) | payer MEDICAID, SELFPAY ==
--- NOTE | 2023-06-07 11:00 | MR_ITS ---
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 Technique: Multiplanar, multisequence noncontrast imaging of the cervical spine. Mild straightening of the normal cervical lordosis. Signal within the cord is normal. Craniocervical junction, C1 and C2 relationship, odontoid process and soft tissues are normal. C2-C3: Normal. C3-C4: Normal. C4-C5: Very mild annular disc bulging. No stenosis. C5-C6: Mild annular disc bulging with a tiny central disc protrusion. Mild encroachment upon the vent ral thecal sac but no contact. C6-C7: Mild osteophytic ridging. No stenosis. C7-T1: Normal. Bilateral cervical chain lymphadenopathy. Largest lymph nodes are at level 2 measuring up to 18 mm in diameter. IMPRESSION: 1. No high-grade central or foraminal stenosis. 2. Very mild central disc protrusion at C5-6 and mild stenosis centrally. 3. Cervical chain lymphadenopathy. Recommend follow-up neck CT with IV contrast. Etiology of these l ymph nodes appears to be further evaluated.
== END 2023-06-07 10:36 | disposition home or self-care (01) ==
LOC: RAD 10:36
PROVIDERS: PCP Registered Nurse; Visit Provider Specialist
DX: G58.7 Mononeuritis multiplex (principal); M50.222 Other cervical disc displacement at C5-C6 level; M48.02 Spinal stenosis, cervical region
CPT/HCPCS: 72141

== ENCOUNTER 2023-07-12 13:54 | Outpatient (CLI) | payer MEDICAID, SELFPAY ==
[2023-07-12 14:16] LABS: Basophils # 0.1 10^3/uL (0.0-0.1); Eosinophils # 0.2 10^3/uL (0.0-0.8); Eosinophils % 1.6 %; Hematocrit 46.3 % (36-47); Lymphocytes # 6.6 10^3/uL (0.8-4.8); Lymphocytes % 48.4 %; Mean Corpuscular HGB Conc 33.9 g/dL (30-55); Mean Corpuscular Hemoglobin 27.2 pg (27-33); Mean Corpuscular Volume 80.1 fl (85-98); Monocytes % 7.6 %; Neutrophils # 5.59 10^3/uL (1.8-7.7); Neutrophils % 41.2 %; Nucleated Red Blood Cells % 0 %; Platelet Count 625 10^3/cmm (157-399); Red Blood Count 5.78 10^6/uL (3.85-5.65); Red Cell Distribution Width 12.2 % (12.1-15.1); White Blood Count 13.56 10^3/uL (3.29-11.43)
[2023-07-12 14:36] LABS: Slide Review Slide Review Perform
[2023-07-12 14:37] LABS: Alanine Aminotransferase 11 U/L (0-33); Albumin Level 4.7 g/dL (3.5-5.2); Alkaline Phosphatase 74 U/L (35-105); Anion Gap 13.5 (5-19); Aspartate Amino Transferase 16 U/L (0-32); Blood Urea Nitrogen 5 mg/dL (6-20); Calcium 8.8 mg/dL (8.5-10.5); Carbon Dioxide 25 mmol/L (22-29); Chloride 104 mmol/L (98-107); Globulin 3.5 g/dL (1.3-4.6); Glomerular Filtration Rate 121.8 mL/min (90-130); Glucose 110 mg/dL (65-115); Osmolality Calculated 284 mOsm/kg (285-295); Potassium 4.5 mmol/L (3.5-5.1); Sodium 138 mmol/L (136-145); Total Bilirubin 0.3 mg/dL (0.15-1.2); Total Protein 8.2 g/dL (6.6-8.7)
[2023-07-12 14:52] LABS: 25 Hydroxy Vitamin D 37 ng/mL (30-100); Vitamin B12 374 pg/mL (232-1245)
== END 2023-07-12 13:55 | disposition home or self-care (01) ==
LOC: LAB 13:57
PROVIDERS: PCP Registered Nurse; Visit Provider Registered Nurse
DX: E55.9 Vitamin D deficiency, unspecified (principal); I10 Essential (primary) hypertension; M25.50 Pain in unspecified joint; R53.82 Chronic fatigue, unspecified; E53.8 Deficiency of other specified B group vitamins
CPT/HCPCS: 36415; 80053; 82306; 82607; 85025

== ENCOUNTER 2023-07-12 15:44 | Outpatient (CLI) | payer MEDICAID, SELFPAY ==
--- NOTE | 2023-07-12 15:30 | CTR_ITS ---
PROCEDURE INFORMATION: Exam: CT Neck With Contrast Exam date and time: 07/12/2023 3:55 PM Age: 23 years old Clinical indication: Mass, lump, or swelling in neck; Patient HX: Right side neck lump x several months but getting bigger in last month, left side lump-feels it when she is swallowing; Additional info: R59.1 - generalized enlarged lymph nodes TECHNIQUE: Imaging protocol: Computed tomography of the neck with contrast. Radiation optimization: All CT scans at this facility use at least one of these dose optimization techniques: automated exposure control; mA and/or kV adjustment per patient size (includes targeted exams where dose is matched to clinical indication); or iterative reconstruction. Contrast material: OMNI 350; Contrast volume: 100 ml; Contrast route: INTRAVENOUS (IV); COMPARISON: MR cervical spin wo con* [id number] 06/07/2023 11:06 AM RADIATION DOSE METRICS: Total DLP (mGy-cm): 1135.94 FINDINGS: Oral cavity: Suboptimal evaluation of the oral cavity secondary to streak artifact from dental hardware . Pharynx: Prominent nasopharyngeal soft tissues. Prominent bilateral palatine tonsils. Larynx: Unremarkable. Epiglottis is normal. Prevertebral and retropharyngeal spaces: Unremarkable. Salivary glands: Normal. Glands are normal in size. Thyroid: No enlarged or calcified nodules. Lymph nodes: Redemonstration of bilateral cervical lymphadenopathy. Right deep chain cervical lymph nodes measure up to 3.7 x 1.4 cm. Left deep chain lymph nodes measure up to 2.5 x 1.1 cm. Trachea: Visualized upper trachea is unremarkable. Lungs: Lung apices are unremarkable. Bones/joints: No acute bony abnormality. Soft tissues: Subcutaneous soft tissues are unremarkable. CT/CT neck w con* [id number] IMPRESSION: Bilateral cervical lymphadenopathy, prominent nasopharyngeal soft tissues and prominent bilateral palatine tonsils. This constellation of findings may be seen with underlying infection/inflammation. Lymphoproliferative disorders including lymphoma cannot be excluded. Recommend clinical correlation and follow up imaging as clinically warranted.
[2023-07-12] MEDS: iohexol 350 mg/mL 500 mL Btl (per mL) IV (16:03)
== END 2023-07-12 15:45 | disposition home or self-care (01) ==
LOC: RAD 15:44
PROVIDERS: PCP Registered Nurse; Visit Provider Specialist
DX: R59.1 Generalized enlarged lymph nodes (principal)
CPT/HCPCS: 70491; Q9967

== ENCOUNTER 2023-07-19 11:50 | Outpatient (CLI) | payer MEDICAID, SELFPAY ==
[2023-07-19 13:06] LABS: Hepatitis A Antibody IgM Non-Reactive (Nonreactive); Hepatitis B Core AB, Total Non-Reactive (Nonreactive); Hepatitis B Surface Antigen Non-Reactive (Nonreactive); Hepatitis C Virus Antibody Non-Reactive (Nonreactive)
[2023-07-19 13:07] LABS: HIV 1 & 2 Antibody Non-Reactive (Non-Reactiv); HIV 1 & 2 Antigen Non-Reactive (Non-Reactiv)
[2023-07-19 13:42] LABS: Hepatitis B Surface AB 21.8 (11.5-1000)
[2023-07-20 16:29] LABS: EBV IGG TEST >750.00 U/mL; EBV IGM TEST <36.00 U/mL
[2023-07-20 16:49] LABS: Lyme AB Screen <0.90 index
[2023-07-24 16:10] LABS: E. Chaffeensis AB IGG <1:64; E. Chaffeensis AB IGM <1:20
[2023-07-25 16:39] LABS: RMSF IGG NOT DETECTED; RMSF IGM NOT DETECTED
== END 2023-07-19 11:51 | disposition home or self-care (01) ==
LOC: LAB 11:51
PROVIDERS: PCP Registered Nurse; Visit Provider Registered Nurse
DX: R59.1 Generalized enlarged lymph nodes (principal); D58.0 Hereditary spherocytosis
CPT/HCPCS: 36415; 86618; 86664; 86665; 86666; 86705; 86706; 86709; 86757; 86803; 87340; 87806

== ENCOUNTER → 2023-07-23 12:28 | Outpatient (BNVA) | payer MEDICAID, SELFPAY | PROVIDERS: PCP Registered Nurse; Visit Provider Registered Nurse | DX: R10.9 Unspecified abdominal pain (principal) | CPT/HCPCS: 81000; 87086; 88112 ==

== ENCOUNTER 2023-07-24 16:16 | Outpatient (CLI) | payer MEDICAID, SELFPAY ==
[2023-07-24] MEDS: iohexol 300 mg/mL 100 mL Btl IV (17:00)
--- NOTE | 2023-07-24 17:00 | CTR_ITS ---
PROCEDURE INFORMATION: Exam: CT Chest Without and With Contrast; Diagnostic Exam date and time: 07/24/2023 4:53 PM Age: 23 years old Clinical indication: Other: None, swollen and painful lymph nodes in neck; Prior surgery; Surgery date: 6+ months; Surgery type: Spleen, gb, appy, hyst; Patient HX: Swollen lymph nodes in neck x several months, but getting bigger; Additional info: R59.1 - generalized enlarged lymph nodes, stat TECHNIQUE: Imaging protocol: Diagnostic computed tomography of the chest without and with contrast. Radiation optimization: All CT scans at this facility use at least one of these dose optimization techniques: automated exposure control; mA and/or kV adjustment per patient size (includes targeted exams where dose is matched to clinical indication); or iterative reconstruction. Contrast material: OMNIPAQUE 350; Contrast volume: 100 ml; Contrast route: INTRAVENOUS (IV); COMPARISON: 1. CT angio chest PE protcl [id number] 02/11/2022 12:[address] neck w con* [id number] 07/12/2023 3:55 PM RADIATION DOSE METRICS: Total DLP (mGy-cm): 738.3 FINDINGS: Thymus: Residual thymus in the anterior mediastinum. Lungs: 2 mm right lower lobe nodule, almost certainly benign in this age group. No imaging follow-up recommended. The lungs are otherwise clear. No consolidation. Pleural spaces: Unremarkable. No pneumothorax. No pleural effusion. Heart: Unremarkable. No cardiomegaly. No pericardial effusion. Lymph nodes: Prominent bilateral axillary lymph nodes measuring up to 0.8 cm short axis. No mediastinal or hilar lymphadenopathy. Vasculature: Unremarkable. No aortic aneurysm. Bones/joints: Unremarkable. No acute fracture. Soft tissues: Unremarkable. PROCEDURE INFORMATION: Exam: CT Abdomen And Pelvis Without And With Contrast Exam date and time: 07/24/2023 4:53 PM Age: 23 years old Clinical indication: Other: None, swollen and painful lymph nodes in neck; Prior surgery; Surgery date: 6+ months; Surgery type: Spleen, gb, appy, hyst; Patient HX: Swollen lymph nodes in neck x several months, but getting bigger; Additional info: R59.1 - generalized enlarged lymph nodes, stat TECHNIQUE: Imaging protocol: Computed tomography of the abdomen and pelvis without and with contrast. Radiation optimization: All CT scans at this facility use at least one of these dose optimization techniques: automated exposure control; mA and/or kV adjustment per patient size (includes targeted exams where dose is matched to clinical indication); or iterative reconstruction. Contrast material: OMNIPAQUE 350; Contrast volume: 100 ml; Contrast route: INTRAVENOUS (IV); COMPARISON: CT kidney stone [id number] 10/01/2017 5:48 PM RADIATION DOSE METRICS: Total DLP (mGy-cm): 738.3 FINDINGS: Liver: Tiny hypodense lesions in the liver are too small to characterize and are most likely cysts. No follow-up imaging is recommended. No nodule visualized. Gallbladder and bile ducts: Cholecystectomy. The bile ducts are normal. Pancreas: Normal. No ductal dilation. Spleen: Splenectomy. Adrenal glands: Normal. No mass. Kidneys and ureters: Normal. No hydronephrosis. Stomach and bowel: Unremarkable. No obstruction. No mucosal thickening. Appendix: The appendix is absent. Intraperitoneal space: Unremarkable. No free air. No significant fluid collection. Vasculature: Unremarkable. No abdominal aortic aneurysm. Lymph nodes: Small retroperitoneal and inguinal lymph nodes are normal in size. No lymphadenopathy. Urinary bladder: Unremarkable as visualized. Reproductive: Hysterectomy. 1.7 cm right ovarian follicle. The left ovary is unremarkable. Bones/joints: Unremarkable. No acute fracture. Soft tissues: Unremarkable. [place] [facility] [place] [id number] IMPRESSION: 1. No acute findings. 2. Mildly prominent bilateral axillary lymph nodes are most likely reactive or inflammatory. IMPRESSION: 1. No acute findings. 2. No lymphadenopathy.
== END 2023-07-24 16:17 | disposition home or self-care (01) ==
LOC: RAD 16:16
PROVIDERS: PCP Registered Nurse; Visit Provider Specialist
DX: R59.1 Generalized enlarged lymph nodes (principal); Z90.49 Acquired absence of other specified parts of digestive tract; Z90.81 Acquired absence of spleen; Z90.710 Acquired absence of both cervix and uterus
CPT/HCPCS: 71260; 74178; Q9967

== ENCOUNTER 2023-08-01 14:01 | Outpatient (CLI) | payer MEDICAID, SELFPAY ==
[2023-08-01 14:43] LABS: Urine Color Yellow (Yellow)
[2023-08-01 14:44] LABS: Add Urine Microscopic? YES; Bacteria Urine 3+ /hpf; Bilirubin Urine Neg (Negative); Blood Urine 2+ (Negative); Glucose Urine UA Norm (Normal); Ketones Urine Negative (Negative); Leukocyte Esterase Urine 2+ (Negative); Nitrate Urine Positive (Negative); Protein Urine Neg (Negative); Urine Appearance Cloudy (CLEAR); Urobilinogen Urine Norm (Negative); WBC Urine 80-100 /hpf (0-5); pH Urine 7 (5-7)
[2023-08-01 14:46] LABS: Add Urine Culture? No
== END 2023-08-01 14:02 | disposition home or self-care (01) ==
PROVIDERS: PCP Registered Nurse; Visit Provider Registered Nurse
DX: R30.0 Dysuria (principal)
CPT/HCPCS: 81001

== ENCOUNTER 2023-08-06 10:48 | Emergency (ER) | payer MEDICAID, SELFPAY ==
[2023-08-06 10:59] VITALS: BP 121/84; PULSE 117; RESP 16; TEMP 36.6; O2SAT 100
--- NOTE | 2023-08-06 11:13 | XRR_ITS ---
PROCEDURE INFORMATION: Exam: XR Chest Exam date and time: 08/06/2023 11:24 AM Age: 23 years old Clinical indication: Other: Enlarged lymph nodes; Additional info: Fever TECHNIQUE: Imaging protocol: Radiologic exam of the chest. Views: 1 view. COMPARISON: [place] [id number] 07/24/2023 4:53 PM FINDINGS: Lungs: Unremarkable. No consolidation. Pleural spaces: Unremarkable. No pleural effusion. No pneumothorax. Heart/Mediastinum: Unremarkable. No cardiomegaly. Bones/joints: Unremarkable. XR/XR chest 1V portable [id number] IMPRESSION: No acute findings.
--- NOTE | 2023-08-06 11:14 | W.ED.GENADLT ---
HPI - General Adult General: Chief complaint: General Medical Stated complaint: neck swelling Time Seen by Provider: 08/06/23 11:08 History of Present Illness: 23-year-old female who presents to the emergency room with fevers. She says she has been having issues with her lymph nodes. Been having fevers. She been on multiple rounds of antibiotics. She says that she ended up with a yeast infection and then a urinary tract infection. She has been on Augmentin. Now she is on Bactrim she says. She says fevers were much higher yesterday and she feels like her lymph nodes have increased in size so she came to the emergency room. She says she is followed by hematology and other specialist. She is supposed to have biopsy of the lymph nodes soon. She says she does not have a spleen. Review of Systems Narrative: Constitutional symptoms: Negative except as documented in HPI. Skin symptoms: Negative except as documented in HPI. Eye symptoms: Negative except as documented in HPI. ENMT symptoms: Negative except as documented in HPI. Respiratory symptoms: Negative except as documented in HPI. Cardiovascular symptoms: Negative except as documented in HPI. Gastrointestinal symptoms: Negative except as documented in HPI. Genitourinary symptoms: Negative except as documented in HPI. Musculoskeletal symptoms: Negative except as documented in HPI. Neurologic symptoms: Negative except as documented in HPI. Psychiatric symptoms: Negative except as documented in HPI. Endocrine symptoms: Negative except as documented in HPI. 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 H/O hysterectomy with oophorectomy History of appendectomy Family History Mother Raynaud's syndrome Scleroderma Congestive heart failure (CHF) Endometriosis Cancer chronic lymphatic leukemia Hypertension Grandmother Cancer acute lymphatic leukemia and lung leukemia--Maternal Grandfather Cancer Maternal--prostate Denies family history of Diabetes CAD (coronary artery disease) Clotting disorder Hyperlipidemia Chronic kidney disease (CKD) Bleeding disorder Stroke Social History Smoking and tobacco/nicotine status: never used tobacco/nicotine Second hand smoke exposure: No Alcohol intake: former Substance/Drug Use: never Adopted: No Lives independently: Yes Do you think of yourself as: Straight/Heterosexual Current gender identity: Female Physical Exam Narrative: EXAM NARRATIVE: General: Alert, no acute distress. Skin: Warm, dry. Head: Normocephalic, atraumatic. Neck: Supple, trachea midline. Eye: Extraocular movements are intact. Ears, nose, mouth and throat: mucosa moist. Cardiovascular: Regular, tachycardic, Normal peripheral perfusion. Respiratory: Lungs are clear to auscultation, respirations are non-labored, breath sounds are equal, Symmetrical chest wall expansion. Gastrointestinal: Soft, Nontender, Non distended, Normal bowel sounds. Musculoskeletal: Normal ROM, no deformity. Neurological: Alert and oriented, No focal neurological deficit observed. Psychiatric: Cooperative, appropriate mood & affect. Course Vital Signs: Vital signs: Vital Signs Temperature 97.9 F 08/06/23 10:59 Pulse Rate 107 H 08/06/23 13:30 Respiratory Rate 16 08/06/23 10:59 Blood Pressure 113/69 08/06/23 13:30 Pulse Oximetry 98 08/06/23 13:30 Oxygen Delivery Me thod Room Air 08/06/23 13:30 MDM - General Adult Medical Decision Making Medical decision making: Differential diagnosis including but not limited to and based on the above HPI, review of systems and physical exam: Patient with fevers. We will check for other sources of infection. She is already on Bactrim. Chest x-ray and urinalysis are ordered. Basic lab work. Cultures. Lactate. CRP. Orders placed to evaluate differential diagnosis based on the above differential, HPI and physical exam Lab Review: Laboratory results were reviewed and interpreted by myself the emergency room physician. Patient has stable leukocytosis. BUN and creatinine are normal. Prolonged emergency room stay: Urine was not collected for almost 2 and half hours and was not posted till almost 3 to be posted. I reviewed the patient's medical record. Reexamination: On reexamination patient has no stridor. I did look at her tonsils at that time and they are erythematous. She says she has been strep negative and mono negative. She is angry and feels like nothing is being done. She is angry that her fourth stay here her third stay had not yielded any results. Tried to discuss with her that doing the testing that I know to do in the emergency room and that her specialist will have to complete this workup. She is angry about that as well and demands an AMA paper. Lab Data 08/06/23 11:42 08/06/23 11:42 Radiology Impressions Chest X-Ray 08/06/23 11:13 IMPRESSION: No acute findings. Laboratory Results WBC 15.02 10^3/uL (3.29-11.43) H 08/06/23 11:42 RBC 5.72 10^6/uL (3.85-5.65) H 08/06/23 11:42 Hgb 15.40 g/dL (11.27-16.99) 08/06/23 11:42 Hct 46.4 % (36-47) 08/06/23 11:42 MCV 81.1 fl (85-98) L 08/06/23 11:42 MCH 26.9 pg (27-33) L 08/06/23 11:42 MCHC 33.2 g/dL (30-55) 08/06/23 11:42 RDW 12.6 % (12.1-15.1) 08/06/23 11:42 Plt Count 515 10^3/cmm (157-399) H 08/06/23 11:42 MPV 9.2 fL (7.4-10.4) 08/06/23 11:42 Neut % (Auto) 51.7 % 08/06/23 11:42 Lymph % (Auto) 29.2 % 08/06/23 11:42 [place] % (Auto) 18.0 % 08/06/23 11:42 Eos % (Auto) 0.1 % 08/06/23 11:42 Baso % (Auto) 0.7 % 08/06/23 11:42 Neut # (Auto) 7.78 10^3/uL (1.8-7.7) H 08/06/23 11:42 Lymph # (Auto) 4.4 10^3/uL (0.8-4.8) 08/06/23 11:42 [place] # (Auto) 2.7 10^3/uL (0.2-0.9) H 08/06/23 11:42 Eos # (Auto) 0.0 10^3/uL (0.0-0.8) 08/06/23 11:42 Baso # (Auto) 0.1 10^3/uL (0.0-0.1) 08/06/23 11:42 Nucleated RBC % (auto) 0 % 08/06/23 11:42 Nucleated RBCs # 0.0 /100WBC 08/06/23 11:42 Sodium 133 mmol/L (136-145) L 08/06/23 11:42 Potassium 4.2 mmol/L (3.5-5.1) 08/06/23 11:42 Chloride 96 mmol/L (98-107) L 08/06/23 11:42 Carbon Dioxide 22 mmol/L (22-29) 08/06/23 11:42 Anion Gap 19.2 (5-19) H 08/06/23 11:42 BUN 9 mg/dL (6-20) 08/06/23 11:42 Creatinine 0.7 mg/dL (0.5-0.9) 08/06/23 11:42 GFR Calculation 102.0 mL/min (90-130) 08/06/23 11:42 Glucose 78 mg/dL (65-115) 08/06/23 11:42 Calculated Osmolality 274 mOsm/kg (285-295) L 08/06/23 11:42 Lactic Acid 2.4 mmol/L (0.5-2.2) H 08/06/23 11:42 Calcium 9.1 mg/dL (8.5-10.5) 08/06/23 11:42 Total Bilirubin 0.2 mg/dL (0.15-1.2) 08/06/23 11:42 AST 30 U/L (0-32) 08/06/23 11:42 ALT 47 U/L (0-33) H 08/06/23 11:42 Alkaline Phosphatase 96 U/L (35-105) 08/06/23 11:42 C-Reactive Protein 79.3 mg/L (0.0-4.9) H 08/06/23 11:42 Total Protein 8.1 g/dL (6.6-8.7) 08/06/23 11:42 Albumin 4.2 g/dL (3.5-5.2) 08/06/23 11:42 Globulin 3.9 g/dL (1.3-4.6) 08/06/23 11:42 Urine Color Dark yellow (Yellow) 08/06/23 13:15 Urine Appearance Clear (CLEAR) 08/06/23 13:15 Urine pH 6.5 (5-7) 08/06/23 13:15 Ur Specific [place] 1.010 (1.005-1.030) 08/06/23 13:15 Urine Protein Neg (Negative) 08/06/23 13:15 Urine Glucose (UA) Norm (Normal) 08/06/23 13:15 Urine Ketones 2+ (Negative) H 08/06/23 13:15 Urine Blood Neg (Negative) 08/06/23 13:15 Urine Nitrate Negative (Negative) 08/06/23 13:15 Urine Bilirubin Neg (Negative) 08/06/23 13:15 Urine Urobilinogen Norm mg/dL (Negative) 08/06/23 13:15 Ur Leukocyte Esterase Negative (Negative) 08/06/23 13:15 Urine RBC None /hpf (0-2) 08/06/23 13:15 Urine WBC 0-4 /hpf (0-5) H 08/06/23 13:15 Ur Squamous Epith Cells 10-15 /hpf (0-5) H 08/06/23 13:15 Amorphous Sediment Not Reportable 08/06/23 13:15 Urine Bacteria 1+ /hpf (NONE) H 08/06/23 13:15 All radiology interpretation(s) finalized by discharge Discharge Plan Discharge Patient Disposition: Left Against Medical Advice Clinical Impression: Pharyngitis Condition: Stable Prescriptions: No Action tramadol 50 mg tablet 50 mg PO BID PRN (Reason: pain) 30 Days Qty: 30 0RF hydroxyzine HCl 25 mg tablet 25 mg PO BID PRN (Reason: Anxiety) 30 Days Qty: 30 1RF sulfamethoxazole-trimethoprim [Bactrim DS] 800-160 mg tablet 1 tab PO BID 7 Days Qty: 14 0RF aspirin [Aspir-Low] 81 mg Tablet,Delayed Release (Dr/Ec) 81 mg PO DAILY acetaminophen 500 mg Tablet 500 mg PO Q6H PRN (Reason: Pain) ibuprofen 200 mg Tablet 400 mg PO Q6H PRN (Reason: Pain) Referrals: Nancy Luna, CLERK RATING [Primary Care Provider] - Coding Level of Care Code ED Product Line Manager for Isabel Keating
[2023-08-06] MEDS: sodium chloride 0.9% 1,000 ML 999 ML IV (11:45)
[2023-08-06] MEDS: dexamethasone 10 mg/mL INJ IVP (11:48)
[2023-08-06 12:06] LABS: Basophils # 0.1 10^3/uL (0.0-0.1); Basophils % 0.7 %; Eosinophils % 0.1 %; Hematocrit 46.4 % (36-47); Lymphocytes # 4.4 10^3/uL (0.8-4.8); Lymphocytes % 29.2 %; Mean Corpuscular HGB Conc 33.2 g/dL (30-55); Mean Corpuscular Hemoglobin 26.9 pg (27-33); Mean Corpuscular Volume 81.1 fl (85-98); Mean Platelet Volume 9.2 fL (7.4-10.4); Monocytes # 2.7 10^3/uL (0.2-0.9); Neutrophils # 7.78 10^3/uL (1.8-7.7); Neutrophils % 51.7 %; Nucleated Red Blood Cells % 0 %; Platelet Count 515 10^3/cmm (157-399); Red Blood Count 5.72 10^6/uL (3.85-5.65); Red Cell Distribution Width 12.6 % (12.1-15.1); White Blood Count 15.02 10^3/uL (3.29-11.43)
[2023-08-06 12:17] LABS: Alanine Aminotransferase 47 U/L (0-33); Albumin Level 4.2 g/dL (3.5-5.2); Alkaline Phosphatase 96 U/L (35-105); Anion Gap 19.2 (5-19); Aspartate Amino Transferase 30 U/L (0-32); Blood Urea Nitrogen 9 mg/dL (6-20); C Reactive Protein 79.3 mg/L (0.0-4.9); Calcium 9.1 mg/dL (8.5-10.5); Carbon Dioxide 22 mmol/L (22-29); Chloride 96 mmol/L (98-107); Creatinine Clr Calc Pharmacy 119.3279; Globulin 3.9 g/dL (1.3-4.6); Glucose 78 mg/dL (65-115); Osmolality Calculated 274 mOsm/kg (285-295); Potassium 4.2 mmol/L (3.5-5.1); Sodium 133 mmol/L (136-145); Total Bilirubin 0.2 mg/dL (0.15-1.2); Total Protein 8.1 g/dL (6.6-8.7)
[2023-08-06 12:18] LABS: Lactic Sepsis W/Reflex 2.4 mmol/L (0.5-2.2)
[2023-08-06 13:30] VITALS: BP 113/69; PULSE 107; O2SAT 98
[2023-08-06 13:41] LABS: Reflex Lactate Order REFLEX LACTIC ORDERD
[2023-08-06 14:07] LABS: Urine Appearance Clear (CLEAR); Urine Color Dark Yellow (Yellow); pH Urine 6.5 (5-7)
[2023-08-06 14:08] LABS: Add Urine Culture? No; Bacteria Urine 1+ /hpf; Bilirubin Urine Neg (Negative); Blood Urine Neg (Negative); Glucose Urine UA Norm (Normal); Ketones Urine 2+ (Negative); Leukocyte Esterase Urine Negative (Negative); Nitrate Urine Negative (Negative); Protein Urine Neg (Negative); Urobilinogen Urine Norm (Negative); WBC Urine 0-4 /hpf (0-5)
[2023-08-06 15:00] VITALS: BP 115/57
[2023-08-06 15:09] VITALS: BP 115/57
== END 2023-08-06 15:10 | disposition left against medical advice (07) ==
PROVIDERS: Emergency Provider Emergency Medicine; PCP Registered Nurse
DX: J02.9 Acute pharyngitis, unspecified (principal); Z53.29 Procedure and treatment not carried out because of patient's decision for other reasons; Z79.82 Long term (current) use of aspirin
CPT/HCPCS: 36415; 71045; 80053; 81001; 83605; 85025; 86140; 87040; 96361; 96374; 99284; J1100; J7030

== ENCOUNTER 2023-11-03 20:39 | Emergency (ER) | payer MEDICAID, SELFPAY ==
--- NOTE | 2023-11-03 20:40 | ECG_ITS ---
[facility] Test Date: 2023-11-03 Pat Name: Lily Low Department: Room: Gender: Female Memorial Counselor: : 2000 Requested By: Ken Evans Order Number: [id number] [place] MD: Solomon Mills M.D. Measurements Intervals [place] Rate: 95 P: 58 MO: 176 QRS: 72 QRSD: 88 T: 41 QT: 350 QTc: 440 Interpretive Statements SINUS RHYTHM Compared to ECG 11/27/2022 11:48:34 No significant changes Electronically Signed On 11-04-2023 20:32:41 CDT by Solomon Mills M.D. [email or web address]
[2023-11-03 20:45] VITALS: BP 130/86; PULSE 92; RESP 16; TEMP 36.7; O2SAT 99
[2023-11-03 20:50] VITALS: BP 121/80; PULSE 92; RESP 15; O2SAT 99
--- NOTE | 2023-11-03 21:09 | XRR_ITS ---
PROCEDURE INFORMATION: Exam: XR Chest Exam date and time: 11/03/2023 9:11 PM Age: 23 years old Clinical indication: Chest pressure; Patient HX: Chest pain; Enlarged lymphnodes TECHNIQUE: Imaging protocol: Radiologic exam of the chest. Views: 1 view. COMPARISON: CR XR chest 1V portable [id number] 08/06/2023 11:24 AM FINDINGS: Lungs: Unremarkable. No consolidation. Pleural spaces: Unremarkable. No pleural effusion. No pneumothorax. Heart/Mediastinum: Unremarkable. No cardiomegaly. Bones/joints: Unremarkable. XR/XR chest 1V portable [id number] IMPRESSION: No acute findings.
--- NOTE | 2023-11-03 21:10 | ECG_ITS ---
[facility] Test Date: 2023-11-03 Pat Name: Lily Low Department: Room: Gender: Female Network Support Engineer: : 2000 Requested By: Ken Evans Order Number: [id number] [place] MD: Solomon Mills M.D. Measurements Intervals [place] Rate: 77 P: 42 DE: 165 QRS: 63 QRSD: 86 T: 46 QT: 392 QTc: 445 Interpretive Statements SINUS RHYTHM Compared to ECG 11/03/2023 20:38:24 No significant changes Electronically Signed On 11-04-2023 20:33:03 CDT by Solomon Mills M.D. [email or web address]
--- NOTE | 2023-11-03 21:17 | ED_ITS ---
HPI - Chest Pain 2 General: Chief Complaint: Chest Pain Stated Complaint: chest pain Time Seen by Provider: 11/03/23 20:54 History of Present Illness: 23-year-old female with a history of her editary spherocytosis. On 10/17, she had a large lymph node removed from her neck surgically. 5 days ago, she began to have some left-sided chest discomfort, progressing to left flank pain. Pain is moved more to the center of her chest currently. She describes it as both sharp at times and squeezing at times. She is also noted a bandlike pain in her right lower extremity. She feels it in her knee and distally. Her skin is sensitive on that side. She denies fever. She says she has not had a change in her cough recently. She admits to having anxiety, and hopes that her symptoms are related to that. Related Data Home Medications Medication Instructions Recorded Confirmed aspirin 81 mg tablet,delayed 81 mg PO DAILY 11/27/22 08/06/23 release acetaminophen 500 mg tablet 500 mg PO Q6H PRN Pain 08/06/23 08/06/23 ibuprofen 200 mg tablet 400 mg PO Q6H PRN Pain 08/06/23 08/06/23 Previous Rx's Medication Instructions Recorded hydroxyzine HCl 25 mg tablet 25 mg PO BID PRN Anxiety 30 days 07/19/23 #30 tabs tramadol 50 mg tablet 50 mg PO BID PRN pain 30 days #30 07/19/23 tabs sulfamethoxazole 800 1 tab PO BID 7 days #14 tabs 08/02/23 mg-trimethoprim 160 mg tablet (Bactrim DS) Allergies Allergy/AdvReac Type Severity Reaction Status Date / Time Iodinated Contrast Media Allergy Unknown Verified 08/06/23 11:05 oxycodone Allergy Unknown Verified 11/03/23 20:51 PFSH ED 2 PFSH: Medical History Lymphadenopathy Positive JOSÉ MIGUEL (antinuclear antibody) Multiple joint pain History of autoimmune disorder Metacarpophalangeal joint pain of right hand Hand pain, right Numbness and tingling in right hand Left ovarian cyst Anxiety Depression History of abnormal cervical Pap smear History of depression Asthma exacerbation Redundant colon Surgical History 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 H/O hysterectomy with oophorectomy History of appendectomy Family History Mother Raynaud's syndrome Scleroderma Congestive heart failure (CHF) Endometriosis Cancer chronic lymphatic leukemia Hypertension Grandmother Cancer acute lymphatic leukemia and lung leukemia--Maternal Grandfather Cancer Maternal--prostate Denies family history of Diabetes CAD (coronary artery disease) Clotting disorder Hyperlipidemia Chronic kidney disease (CKD) Bleeding disorder Stroke Social History Smoking and tobacco/nicotine status: never used tobacco/nicotine Second hand smoke exposure: No Alcohol intake: former Substance/Drug Use: never Adopted: No Lives independently: Yes Do you think of yourself as: Straight/Heterosexual Current gender identity: Female Physical Exam 2 Const: COMMON NORMALS: no acute distress GENERAL APPEARANCE: cooperative; not ill appearing and not frail appearing HENMT: COMMON NORMALS: normocephalic, atraumatic and Normal external nose present HEAD & SCALP: normocephalic and atraumatic FACE & SINUS: normal facial exam and face symmetric NOSE: Normal external nose present Eye: COMMON NORMALS: Equal, round and reactive pupils present and EOMs intact bilaterally PUPIL: Yes Equal, round and reactive pupils present Neck/C-Spine: GENERAL: Yes trachea midline Chest: CHEST: Yes Symmetrical chest wall rise and Yes tenderness (Left greater than right) Resp: COMMON NORMALS: normal respiratory effort, No retractions, No use of accessory muscles and clear to auscultation bilaterally AUSCULTATION: clear to auscultation bilaterally Cardio: COMMON NORMALS: regular rhythm RATE: tachycardic RHYTHM: regular rhythm GI: COMMON NORMALS: Normal to inspection, nondistended, normoactive bowel sounds present Extremity: COMMON NORMALS: no pedal edema Neuro: PRETTY COMA SCALE: document GCS findings [place] coma scale eye opening: Spontaneous [place] coma scale verbal response: Orientated Pretty coma scale motor response: Obey commands [place] coma scale total score: 15 S ENSORY EXAM: Yes extremities (intact) Psych: COMMON NORMALS: speech normal SPEECH: Yes normal speech Skin: NARRATIVE SKIN EXAM: Healing incision to right neck. No evidence of cellulitis. Course 2 Vital Signs: Vital signs: Vital Signs Temperature 98.0 F 08/24/24 23:37 Pulse Rate 97 11/03/23 23:37 Respiratory Rate 17 11/03/23 23:37 Blood Pressure 122/80 11/03/23 23:37 Pulse Oximetry 96 11/03/23 23:37 Oxygen Delivery Me thod Room Air 11/03/23 20:50 MDM - Chest Pain Medical Decision Making EKG timed at 20: 38 shows a normal sinus rhythm with a rate of 95, normal axis, normal intervals. No ST wave changes. Blood cell count is 24 with all cell lines increased, due to recent steroid injection and dexamethasone dosing which she is still on. Platelet count is increased as well. Hemoglobin is 15. BMP is not remarkable. Liver enzymes are nonremarkable. Urinalysis shows bacteriuria with 21-50 squamous cells and no leukocyte Estrace. Contaminated sample. Chest x-ray is negative. Troponin is nondetectable. D-dimer is only 0.28. Ultrasound of the right lower extremity is negative for DVT. She will be allowed home. She knows to return for any new or worsening symptoms. Follow-up with PCP. Lab Data 11/03/23 21:08 11/03/23 21:08 Radiology Impressions Chest X-Ray 11/03/23 21:09 IMPRESSION: No acute findings. Venous Duplex 11/03/23 21:57 IMPRESSION: No evidence of deep vein thrombosis. Laboratory Results WBC 24.37 10^3/uL (3.29-11.43) H 11/03/23 21:08 RBC 5.49 10^6/uL (3.85-5.65) 11/03/23 21:08 Hgb 15.10 g/dL (11.27-16.99) 11/03/23 21:08 Hct 45.1 % (36-47) 11/03/23 21:08 MCV 82.1 fl (85-98) L 11/03/23 21:08 MCH 27.5 pg (27-33) 11/03/23 21:08 MCHC 33.5 g/dL (30-55) 11/03/23 21:08 RDW 12.7 % (12.1-15.1) 11/03/23 21:08 Plt Count 746 10^3/cmm (157-399) H 11/03/23 21:08 MPV 8.7 fL (7.4-10.4) 11/03/23 21:08 Neut % (Auto) 43.7 % 11/03/23 21:08 Lymph % (Auto) 46.1 % 11/03/23 21:08 [place] % (Auto) 7.3 % 11/03/23 21:08 Eos % (Auto) 1.4 % 11/03/23 21:08 Baso % (Auto) 0.7 % 11/03/23 21:08 Neut # (Auto) 10.66 10^3/uL (1.8-7.7) H 11/03/23 21:08 Lymph # (Auto) 11.2 10^3/uL (0.8-4.8) H 11/03/23 21:08 [place] # (Auto) 1.8 10^3/uL (0.2-0.9) H 11/03/23 21:08 Eos # (Auto) 0.3 10^3/uL (0.0-0.8) 11/03/23 21:08 Baso # (Auto) 0.2 10^3/uL (0.0-0.1) H 11/03/23 21:08 Nucleated RBC % (auto) 0 % 11/03/23 21:08 Nucleated RBCs # 0.0 /100WBC 11/03/23 21:08 PT 12.00 SECONDS (12.1-14.9) L 11/03/23 21:08 INR 0.86 (0.8-1.2) 11/03/23 21:08 APTT 28.0 SECONDS (23.9-36.7) 11/03/23 21:08 D-Dimer 0.28 ug/mLFEU (0-0.59) 11/03/23 21:08 Sodium 138 mmol/L (136-145) 11/03/23 21:08 Potassium 3.5 mmol/L (3.5-5.1) 11/03/23 21:08 Chloride 100 mmol/L (98-107) 11/03/23 21:08 Carbon Dioxide 24 mmol/L (22-29) 11/03/23 21:08 Anion Gap 17.5 (5-19) 11/03/23 21:08 BUN 9 mg/dL (6-20) 11/03/23 21:08 Creatinine 0.7 mg/dL (0.5-0.9) 11/03/23 21:08 GFR Calculation 102.0 mL/min (90-130) 11/03/23 21:08 Glucose 101 mg/dL (65-115) 11/03/23 21:08 Calculated Osmolality 285 mOsm/kg (285-295) 11/03/23 21:08 Calcium 9.2 mg/dL (8.5-10.5) 11/03/23 21:08 Total Bilirubin 0.2 mg/dL (0.15-1.2) 11/03/23 21:08 AST 14 U/L (0-32) 11/03/23 21:08 ALT 23 U/L (0-33) 11/03/23 21:08 Alkaline Phosphatase 83 U/L (35-105) 11/03/23 21:08 Troponin T Baseline < 6 ng/L (0-10) 11/03/23 21:08 NT-Pro-B Natriuret Pep 65 pg/mL (0-125) 11/03/23 21:08 Total Protein 7.7 g/dL (6.6-8.7) 11/03/23 21:08 Albumin 4.6 g/dL (3.5-5.2) 11/03/23 21:08 Globulin 3.1 g/dL (1.3-4.6) 11/03/23 21:08 HCG, Qual Negative (Negative) 11/03/23 21:08 Urine Color Yellow (Yellow) 11/03/23 21:19 Urine Appearance Cloudy (CLEAR) A 11/03/23 21:19 Urine pH 7.0 (5-7) 11/03/23 21:19 Ur Specific [place] 1.008 (1.005-1.030) 11/03/23 21:19 Urine Protein Negative (Negative) 11/03/23 21:19 Urine Glucose (UA) Negative (Normal) 11/03/23 21:19 Urine Ketones Negative (Negative) 11/03/23 21:19 Urine Blood Negative (Negative) 11/03/23 21:19 Urine Nitrate Negative (Negative) 11/03/23 21:19 Urine Bilirubin Negative (Negative) 11/03/23 21:19 Urine Urobilinogen 0.2 mg/dL (Negative) 11/03/23 21:19 Ur Leukocyte Esterase Negative (Negative) 11/03/23 21:19 Urine RBC 0-2 /hpf (0-2) 11/03/23 21:19 Urine WBC 6-10 /hpf (0-5) 11/03/23 21:19 Ur Squamous Epith Cells 21-50 /hpf (0-5) 11/03/23 21:19 Amorphous Sediment Not Reportable 11/03/23 21:19 Urine Bacteria 4+ /hpf (NONE) H 11/03/23 21:19 Hyaline Casts 2.05 /lpf 11/03/23 21:19 All radiology interpretation(s) finalized by discharge Discharge Plan Discharge Patient Disposition: Home Clinical Impression: Atypical chest pain, Hereditary spherocytosis Condition: Stable Prescriptions: No Action tramadol 50 mg tablet 50 mg PO BID PRN (Reason: pain) 30 Days Qty: 30 0RF hydroxyzine HCl 25 mg tablet 25 mg PO BID PRN (Reason: Anxiety) 30 Days Qty: 30 1RF sulfamethoxazole-trimethoprim [Bactrim DS] 800-160 mg tablet 1 tab PO BID 7 Days Qty: 14 0RF aspirin [Aspir-Low] 81 mg Tablet,Delayed Release (Dr/Ec) 81 mg PO DAILY acetaminophen 500 mg Tablet 500 mg PO Q6H PRN (Reason: Pain) ibuprofen 200 mg Tablet 400 mg PO Q6H PRN (Reason: Pain) Discharge Orders: Discharge ED (Routine); Ordered 11/03/23 Ordered By: Ken Urias Referrals: Nancy Luna, IN HOME SALES CONSULTANT [Primary Care Provider] - 1-3 days Patient Instructions: Chest Pain (ED), Opioid Safety, Pain Management Activity Restrictions/Additional Instructions: Return for fever, worsening pain, cough, vomiting, significant shortness of breath, any other concerning symptoms. See your doctor this coming week. Coding Level of Care Code ED Electron Beam Photo Mask Technician for Isabel Keating
[2023-11-03 21:19] LABS: Basophils # 0.2 10^3/uL (0.0-0.1); Basophils % 0.7 %; Eosinophils # 0.3 10^3/uL (0.0-0.8); Eosinophils % 1.4 %; Hematocrit 45.1 % (36-47); Lymphocytes # 11.2 10^3/uL (0.8-4.8); Lymphocytes % 46.1 %; Mean Corpuscular HGB Conc 33.5 g/dL (30-55); Mean Corpuscular Hemoglobin 27.5 pg (27-33); Mean Corpuscular Volume 82.1 fl (85-98); Mean Platelet Volume 8.7 fL (7.4-10.4); Monocytes # 1.8 10^3/uL (0.2-0.9); Monocytes % 7.3 %; Neutrophils # 10.66 10^3/uL (1.8-7.7); Neutrophils % 43.7 %; Nucleated Red Blood Cells % 0 %; Platelet Count 746 10^3/cmm (157-399); Red Blood Count 5.49 10^6/uL (3.85-5.65); Red Cell Distribution Width 12.7 % (12.1-15.1); White Blood Count 24.37 10^3/uL (3.29-11.43)
[2023-11-03 21:27] LABS: INR 0.86 (0.8-1.2)
[2023-11-03 21:28] LABS: HCG, Serum Qual Negative (Negative)
[2023-11-03 21:29] LABS: D Dimer 0.28 ug/mLFEU (0-0.59)
[2023-11-03 21:31] LABS: Charge for UA Resulting for Rev
[2023-11-03 21:35] LABS: Bilirubin Urine Negative (Negative); Blood Urine Negative (Negative); Glucose Urine UA Negative (Normal); Ketones Urine Negative (Negative); Leukocyte Esterase Urine Negative (Negative); Nitrate Urine Negative (Negative); Protein Urine Negative (Negative); Specific Gravity, Urine 1.008 (1.005-1.030); Urine Appearance Cloudy (CLEAR); Urine Color Yellow (Yellow); Urobilinogen Urine 0.2 mg/dL (Negative)
[2023-11-03 21:36] VITALS: BP 124/89; PULSE 91; RESP 16; O2SAT 98
[2023-11-03 21:37] LABS: Troponin(5th) Baseline < 6 ng/L (0-10)
[2023-11-03 21:45] LABS: Alanine Aminotransferase 23 U/L (0-33); Albumin Level 4.6 g/dL (3.5-5.2); Alkaline Phosphatase 83 U/L (35-105); Aspartate Amino Transferase 14 U/L (0-32); Blood Urea Nitrogen 9 mg/dL (6-20); Calcium 9.2 mg/dL (8.5-10.5); Carbon Dioxide 24 mmol/L (22-29); Chloride 100 mmol/L (98-107); Creatinine Clr Calc Pharmacy 121.7911; Globulin 3.1 g/dL (1.3-4.6); Glucose 101 mg/dL (65-115); NT Pro B Type Natriuretic Pept 65 pg/mL (0-125); Osmolality Calculated 285 mOsm/kg (285-295); Sodium 138 mmol/L (136-145); Total Bilirubin 0.2 mg/dL (0.15-1.2); Total Protein 7.7 g/dL (6.6-8.7)
[2023-11-03 21:45] LABS: Bacteria Urine 4+ /hpf; Hyaline Casts Urine 2.05 /lpf; RBC Urine 0-2 /hpf (0-2); Squamous Epithelial Cell Urine 21-50 /hpf (0-5)
--- NOTE | 2023-11-03 21:57 | USR_ITS ---
PROCEDURE INFORMATION: Exam: US Duplex Right Lower Extremity Veins, Limited Exam date and time: 11/03/2023 10:55 PM Age: 23 years old Clinical indication: Pain; Leg, lower; Right; Additional info: R leg pain. TECHNIQUE: Imaging protocol: Real-time duplex ultrasound of the right extremity with 2-D jolley scale, color Doppler flow and spectral waveform analysis including responses to compression and other maneuvers (when performed) with image documentation. Limited exam was focused on the right lower extremity veins. COMPARISON: US OB <= 14 weeks fetus [id number] 07/22/2019 4:02 PM FINDINGS: Right deep veins: Unremarkable. The common femoral, femoral, proximal profunda femoral and popliteal veins are patent without thrombus. Normal Doppler waveforms. Normal compressibility and/or augmentation response. Superficial veins: Greater saphenous vein at the saphenofemoral junction is patent without thrombus. Soft tissues: Unremarkable. US/[place] [id number] IMPRESSION: No evidence of deep vein thrombosis.
[2023-11-03 22:00] LABS: Anion Gap 17.5 (5-19); Potassium 3.5 mmol/L (3.5-5.1)
[2023-11-03 23:29] VITALS: BP 122/80; PULSE 97; RESP 17; O2SAT 96
[2023-11-03 23:37] VITALS: BP 122/80; PULSE 97; RESP 17; TEMP 36.7; O2SAT 96
== END 2023-11-03 23:37 | disposition home or self-care (01) ==
PROVIDERS: Emergency Provider Emergency Medicine; PCP Registered Nurse
DX: R07.89 Other chest pain (principal); D58.0 Hereditary spherocytosis; Z79.82 Long term (current) use of aspirin
CPT/HCPCS: 71045; 80053; 81003; 81015; 83880; 84484; 84703; 85025; 85378; 85610; 85730; 93005; 93971; 99285

== ENCOUNTER → 2023-11-05 15:29 | Outpatient (BNVA) | payer MEDICAID, SELFPAY | PROVIDERS: PCP Registered Nurse; Visit Provider Nurse Practitioner | DX: M25.521 Pain in right elbow (principal); M25.522 Pain in left elbow; G56.21 Lesion of ulnar nerve, right upper limb; G58.7 Mononeuritis multiplex; Z86.2 Personal history of diseases of the blood and blood-forming organs and certain disorders involving the immune mechanism | CPT/HCPCS: 73080 ==

== ENCOUNTER → 2023-12-21 11:03 | Outpatient (BNVA) | payer MEDICAID, SELFPAY | PROVIDERS: PCP Registered Nurse; Visit Provider Nurse Practitioner | DX: G56.21 Lesion of ulnar nerve, right upper limb (principal) | CPT/HCPCS: 36415; 80053; 81001; 85025 ==

== ENCOUNTER → 2023-12-25 10:37 | Outpatient (BNVA) | payer MEDICAID, SELFPAY | PROVIDERS: PCP Registered Nurse; Visit Provider Family Medicine | DX: Z01.818 Encounter for other preprocedural examination (principal) | CPT/HCPCS: 81003 ==

== ENCOUNTER 2024-01-13 14:20 | Emergency (ER) | payer MEDICAID, SELFPAY ==
[2024-01-13 14:24] VITALS: BP 116/74; PULSE 103; RESP 17; TEMP 36.6; O2SAT 99; BMI 22.2
--- NOTE | 2024-01-13 15:03 | XRR_ITS ---
PROCEDURE INFORMATION: Exam: XR Abdomen Exam date and time: 01/13/2024 3:33 PM Age: 23 years old Clinical indication: Abdominal pain; Generalized TECHNIQUE: Imaging protocol: Radiologic exam of the abdomen. Views: 3 or more views. COMPARISON: CT abdpel wo/w [id number] 07/24/2023 4:53 PM FINDINGS: Gastrointestinal tract: Normal. No bowel dilation. Intraperitoneal space: Normal. No free air. Bones/joints: Unremarkable for age. Other findings: Linear metallic density posterior to the stomach, similar to the prior CT. XR/XR abdomen 3V [id number] IMPRESSION: Nonobstructive bowel gas pattern.
[2024-01-13 15:34] LABS: Basophils # 0.2 10^3/uL (0.0-0.1); Basophils % 0.8 %; Eosinophils # 0.3 10^3/uL (0.0-0.8); Eosinophils % 1.3 %; Hematocrit 43.8 % (36-47); Lymphocytes # 5.8 10^3/uL (0.8-4.8); Lymphocytes % 29.5 %; Mean Corpuscular HGB Conc 34.7 g/dL (30-55); Mean Corpuscular Volume 80.7 fl (85-98); Mean Platelet Volume 9.3 fL (7.4-10.4); Monocytes # 1.7 10^3/uL (0.2-0.9); Monocytes % 8.4 %; Neutrophils # 11.72 10^3/uL (1.8-7.7); Neutrophils % 59.6 %; Nucleated Red Blood Cells % 0 %; Platelet Count 603 10^3/cmm (157-399); Red Blood Count 5.43 10^6/uL (3.85-5.65); Red Cell Distribution Width 12.6 % (12.1-15.1); White Blood Count 19.65 10^3/uL (3.29-11.43)
[2024-01-13 15:42] LABS: Bilirubin Urine Negative (Negative); Blood Urine Negative (Negative); Glucose Urine UA Negative (Normal); Ketones Urine Negative (Negative); Leukocyte Esterase Urine Negative (Negative); Nitrate Urine Negative (Negative); Protein Urine Negative (Negative); Specific Gravity, Urine 1.007 (1.005-1.030); Urine Appearance Clear (CLEAR); Urine Color Yellow (Yellow); pH Urine 7.5 (5-7)
[2024-01-13 15:45] LABS: HCG Qualitative Urine. Negative (Negative)
[2024-01-13 15:47] LABS: Add Urine Microscopic? YES; Bacteria Urine 1+ /hpf; Hyaline Casts Urine 0-4 /lpf; RBC Urine 0-2 /hpf (0-2)
[2024-01-13 15:55] LABS: Alanine Aminotransferase 13 U/L (0-33); Albumin Level 4.5 g/dL (3.5-5.2); Alkaline Phosphatase 77 U/L (35-105); Anion Gap 16.3 (5-19); Aspartate Amino Transferase 16 U/L (0-32); Blood Urea Nitrogen 5 mg/dL (6-20); Calcium 9.1 mg/dL (8.5-10.5); Carbon Dioxide 25 mmol/L (22-29); Chloride 103 mmol/L (98-107); Creatinine Clr Calc Pharmacy 205.7447; Glomerular Filtration Rate 194.5 mL/min (90-130); Glucose 105 mg/dL (65-115); Lipase 16 U/L (13-60); Osmolality Calculated 288 mOsm/kg (285-295); Potassium 4.3 mmol/L (3.5-5.1); Sodium 140 mmol/L (136-145); Total Bilirubin 0.2 mg/dL (0.15-1.2); Total Protein 7.5 g/dL (6.6-8.7)
[2024-01-13] MEDS: ondansetron 2 mg/ML SDV 2 mL 4 MG IVP (16:06)
[2024-01-13 16:07] VITALS: RESP 18; O2SAT 97
[2024-01-13] MEDS: sodium chloride 0.9% 1,000 ML 999 ML IV (16:07)
[2024-01-13] MEDS: morphine 4 mg/mL SDV 1 mL IVP (16:07)
--- NOTE | 2024-01-13 16:24 | ED_ITS ---
HPI - Abdominal Pain 2 General: Chief Complaint: Abdominal Pain Stated Complaint: lower abd pain Time Seen by Provider: 01/13/24 14:43 History of Present Illness: This patient is a 23-year-old white female who presents to the ER complaining of lower abdominal pain bilaterally. She states that radiates to her rectum. It is worse after eating. She has had some nausea but no vomiting. She does have some diarrhea with mucus. She has not noticed any blood. She does complain of some dysuria. She has not had a fever. Past surgical history includes a splenectomy and cholecystectomy. Associated Symptoms: Reports diarrhea, dysuria and nausea Related Data Home Medications Medication Instructions Recorded Confirmed aspirin 81 mg tablet,delayed 81 mg PO DAILY 11/27/22 12/25/23 release acetaminophen 500 mg tablet 500 mg PO Q6H PRN Pain 08/06/23 12/25/23 ibuprofen 200 mg tablet 400 mg PO Q6H PRN Pain 08/06/23 12/25/23 Previous Rx's Medication Instructions Recorded hydroxyzine HCl 25 mg tablet 25 mg PO BID PRN Anxiety 30 days 07/19/23 #30 tabs Allergies Allergy/AdvReac Type Severity Reaction Status Date / Time chocolate Allergy throat Verified 12/25/23 10:16 swelling Iodinated Contrast Media Allergy ALGY-Joint Verified 01/13/24 14:32 Pain oxycodone Allergy Unknown Verified 12/25/23 10:16 Review of Systems 2 General: Reports: 10 or more systems reviewed and unremarkable except in HPI and below GI: Reports: abdominal pain, nausea and diarrhea : Reports: dysuria PFSH ED 2 PFSH: Medical History Ulnar nerve entrapment at right elbow Lymphadenopathy Positive JOSÉ MIGUEL (antinuclear antibody) Multiple joint pain History of autoimmune disorder Metacarpophalangeal joint pain of right hand Hand pain, right Numbness and tingling in right hand Left ovarian cyst Anxiety Depression History of abnormal cervical Pap smear History of depression Asthma exacerbation Redundant colon Surgical History 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 H/O hysterectomy with oophorectomy History of appendectomy Family History Mother Raynaud's syndrome Scleroderma Congestive heart failure (CHF) Endometriosis Cancer chronic lymphatic leukemia Hypertension Grandmother Cancer acute lymphatic leukemia and lung leukemia--Maternal Grandfather Cancer Maternal--prostate Denies family history of Diabetes CAD (coronary artery disease) Clotting disorder Hyperlipidemia Chronic kidney disease (CKD) Bleeding disorder Stroke Social History Smoking and tobacco/nicotine status: current every day tobacco/nicotine user Second hand smoke exposure: No Alcohol intake: former Substance/Drug Use: never Adopted: No Lives independently: Yes Do you think of yourself as: Straight/Heterosexual Current gender identity: Female Physical Exam 2 Const: COMMON NORMALS: no acute distress, patient oriented x3 and no limitations GENERAL APPEARANCE: cooperative and comfortable HENMT: COMMON NORMALS: normocephalic, atraumatic, Normal nasal mucous membranes and turbinates present, moist oral mucous membranes and oropharynx normal HEAD & SCALP: normal to inspection, normocephalic and atraumatic F RAJ & SINUS: normal facial exam NOSE: Normal nasal mucous membranes and turbinates present Eye: COMMON NORMALS: Equal, round and reactive pupils present, EOMs intact bilaterally and conjunctivae normal GENERAL EYE: appearance normal, both eyes and all related structures CONJUNCTIVA: Yes conjunctivae normal PUPIL: Yes Equal, round and reactive pupils present Neck/C-Spine: COMMON NORMALS: supple and no JVD Chest: COMMONS NORMALS: normal inspection of the chest Resp: COMMON NORMALS: normal respiratory effort and clear to auscultation bilaterally AUSCULTATION: clear to auscultation bilaterally Cardio: COMMON NORMALS: no JVD, regular rate, regular rhythm, No gallops present (Cardio), No murmurs present (Cardio) and No rub (Cardio) RATE: r egular rate RHYTHM: regular rhythm GI: COMMON NORMALS: Normal to inspection, nondistended, normoactive bowel sounds present and Soft to palpation AUSCULTATION: Yes normoactive bowel sounds PALPATION: Yes Soft to palpation and Yes Tenderness to palpation present (GI) Details: LLQ and RLQ : COMMON NORMALS: Yes no CVA tenderness BLADDER/KIDNEY EXAM: Yes no CVA tenderness Back/Pelvis: COMMON NORMALS: no CVA tenderness and thoracic and lumbar spine normal to inspection Extremity: COMMON NORMALS: normal to inspection Neuro: COMMON NORMALS: patient oriented x3 and CN's II-XII intact bilaterally Psych: COMMON NORMALS: mental status grossly normal, Normal thought process present and cooperative THOUGHT PROCESS: Normal thought process present Skin: COMMON NORMALS: no rashes or lesions noted, turgor normal and no jaundice GENERAL SKIN EXAM: no rashes or lesions noted and turgor normal Course 2 Vital Signs: Vital signs: Vital Signs Temperature 97.9 F 01/13/24 14:24 Pulse Rate 103 H 01/13/24 14:24 Respiratory Rate 18 01/13/24 16:07 Blood Pressure 116/74 01/13/24 14:24 Pulse Oximetry 97 01/13/24 16:07 Oxygen Delivery Me thod Room Air 01/13/24 14:24 MDM - Abdominal Pain Medical Decision Making CBC reveals white blood cell count of 19.7. Patient was evaluated at [facility] 2 days ago and the white count was 16.0. She states she did undergo a CT scan there which was read as normal. She did show me the report. Her CMP is normal. Lipase normal at 16. Urinalysis normal. test negative. Chest x-ray normal. Abdominal flatplate and upright films reveal moderate amount of stool in the rectum. Patient states she does not feel constipated. She states she has actually had diarrhea. I do not think repeat CT is indicated. She may have a GI illness however she has had the symptoms chronically so I did recommend she follow-up with a breast trimmer for further workup. She was discharged in stable condition. Lab Data 01/13/24 15:23 01/13/24 15:23 Labs/Radiology: Radiology Impressions Abdomen X-Ray 01/13/24 15:03 IMPRESSION: Nonobstructive bowel gas pattern. Laboratory Results WBC 19.65 10^3/uL (3.29-11.43) H 01/13/24 15:23 RBC 5.43 10^6/uL (3.85-5.65) 01/13/24 15:23 Hgb 15.20 g/dL (11.27-16.99) 01/13/24 15:23 Hct 43.8 % (36-47) 01/13/24 15:23 MCV 80.7 fl (85-98) L 01/13/24 15:23 MCH 28.0 pg (27-33) 01/13/24 15:23 MCHC 34.7 g/dL (30-55) 01/13/24 15:23 RDW 12.6 % (12.1-15.1) 01/13/24 15:23 Plt Count 603 10^3/cmm (157-399) H 01/13/24 15:23 MPV 9.3 fL (7.4-10.4) 01/13/24 15:23 Neut % (Auto) 59.6 % 01/13/24 15:23 Lymph % (Auto) 29.5 % 01/13/24 15:23 [place] % (Auto) 8.4 % 01/13/24 15:23 Eos % (Auto) 1.3 % 01/13/24 15:23 Baso % (Auto) 0.8 % 01/13/24 15:23 Neut # (Auto) 11.72 10^3/uL (1.8-7.7) H 01/13/24 15:23 Lymph # (Auto) 5.8 10^3/uL (0.8-4.8) H 01/13/24 15:23 [place] # (Auto) 1.7 10^3/uL (0.2-0.9) H 01/13/24 15:23 Eos # (Auto) 0.3 10^3/uL (0.0-0.8) 01/13/24 15:23 Baso # (Auto) 0.2 10^3/uL (0.0-0.1) H 01/13/24 15:23 Nucleated RBC % (auto) 0 % 01/13/24 15:23 Nucleated RBCs # 0.0 /100WBC 01/13/24 15:23 Sodium 140 mmol/L (136-145) 01/13/24 15:23 Potassium 4.3 mmol/L (3.5-5.1) 01/13/24 15:23 Chloride 103 mmol/L (98-107) 01/13/24 15:23 Carbon Dioxide 25 mmol/L (22-29) 01/13/24 15:23 Anion Gap 16.3 (5-19) 01/13/24 15:23 BUN 5 mg/dL (6-20) L 01/13/24 15:23 Creatinine 0.4 mg/dL (0.5-0.9) L 01/13/24 15:23 GFR Calculation 194.5 mL/min (90-130) H 01/13/24 15:23 Glucose 105 mg/dL (65-115) 01/13/24 15:23 Calculated Osmolality 288 mOsm/kg (285-295) 01/13/24 15:23 Calcium 9.1 mg/dL (8.5-10.5) 01/13/24 15:23 Total Bilirubin 0.2 mg/dL (0.15-1.2) 01/13/24 15:23 AST 16 U/L (0-32) 01/13/24 15:23 ALT 13 U/L (0-33) 01/13/24 15:23 Alkaline Phosphatase 77 U/L (35-105) 01/13/24 15:23 Total Protein 7.5 g/dL (6.6-8.7) 01/13/24 15:23 Albumin 4.5 g/dL (3.5-5.2) 01/13/24 15:23 Globulin 3.0 g/dL (1.3-4.6) 01/13/24 15:23 Lipase 16 U/L (13-60) 01/13/24 15:23 HCG, Qual Negative (Negative) 01/13/24 15:26 Urine Color Yellow (Yellow) 01/13/24 15:26 Urine Appearance Clear (CLEAR) 01/13/24 15:26 Urine pH 7.5 (5-7) 01/13/24 15:26 Ur Specific [place] 1.007 (1.005-1.030) 01/13/24 15:26 Urine Protein Negative (Negative) 01/13/24 15:26 Urine Glucose (UA) Negative (Normal) 01/13/24 15:26 Urine Ketones Negative (Negative) 01/13/24 15:26 Urine Blood Negative (Negative) 01/13/24 15:26 Urine Nitrate Negative (Negative) 01/13/24 15:26 Urine Bilirubin Negative (Negative) 01/13/24 15:26 Urine Urobilinogen 1.0 mg/dL (Negative) 01/13/24 15:26 Ur Leukocyte Esterase Negative (Negative) 01/13/24 15:26 Urine RBC 0-2 /hpf (0-2) 01/13/24 15:26 Urine WBC 6-10 /hpf (0-5) 01/13/24 15:26 Ur Squamous Epith Cells 11-20 /hpf (0-5) 01/13/24 15:26 Amorphous Sediment Not Reportable 01/13/24 15:26 Urine Bacteria 1+ /hpf (NONE) H 01/13/24 15:26 Hyaline Casts 0-4 /lpf H 01/13/24 15:26 All radiology interpretation(s) finalized by discharge Discharge Plan Discharge Patient Disposition: Home Clinical Impression: Abdominal pain Qualifiers: Abdominal location: lower abdomen, unspecified Qualified Code(s): R10.30 - Lower abdominal pain, unspecified Condition: Stable Prescriptions: No Action hydroxyzine HCl 25 mg tablet 25 mg PO BID PRN (Reason: Anxiety) 30 Days Qty: 30 1RF aspirin [Aspir-Low] 81 mg Tablet,Delayed Release (Dr/Ec) 81 mg PO DAILY acetaminophen 500 mg Tablet 500 mg PO Q6H PRN (Reason: Pain) ibuprofen 200 mg Tablet 400 mg PO Q6H PRN (Reason: Pain) Discharge Orders: Discharge ED (Routine); Ordered 01/13/24 Ordered By: Billy Antoine Referrals: Nancy Luna FNP [Primary Care Provider] - Patient Instructions: Abdominal Pain (ED) Activity Restrictions/Additional Instructions: Follow-up with your primary care physician. Follow-up with GI when they get you scheduled. Coding Level of Care Code ED Taping Supervisor for Isabel Keating
[2024-01-13 17:04] VITALS: BP 117/71; PULSE 89; RESP 16; O2SAT 100
== END 2024-01-13 16:51 | disposition home or self-care (01) ==
PROVIDERS: Emergency Provider Emergency Medicine; PCP Registered Nurse
DX: R10.30 Lower abdominal pain, unspecified (principal); Z79.82 Long term (current) use of aspirin; Z72.0 Tobacco use
CPT/HCPCS: 36415; 74021; 80053; 81001; 81025; 83690; 85025; 96374; 96375; 99284; J2270; J2405; J7030

== ENCOUNTER 2024-01-17 13:16 | Day surgery (SDC) | payer MEDICAID, SELFPAY ==
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
[2024-01-17] VITALS (10 sets, daily range): BP systolic 100–122; BP diastolic 62–83; PULSE 88–129; RESP 16–19; TEMP 36.4–37.2; O2SAT 96–98; BMI 22.2
--- NOTE | 2024-01-17 14:07 | P.HPUD_ITS ---
Surgery/Procedure H&P Update DATE OF PROCEDURE: January 17, 2024 DATE H&P PERFORMED: 12/25/23 H&P UPDATE INFORMATION: I have reviewed H&P completed within last 30 days, I have examined patient prior to procedure, No changes to prior documentation and H&P is in [facility] EMR on date indicated PLANNED PROCEDURE: Operation Date: 01/17/24 15:45 Proposed Procedures p Ulna Nerve Decompression(Right) - Vida Davis MD Related Problem List Diagnoses (1) Ulnar nerve entrapment at right elbow:
[2024-01-17] MEDS: acetaminophen 1,000 MG/100 ML PIGGYBACK 400 MG IV (14:29)
[2024-01-17] MEDS: sodium chloride 0.9% 1,000 ML 30 ML IV (14:30)
[2024-01-17] MEDS: CELEcoxib 200 mg Capsule 400 MG PO (14:30)
[2024-01-17] MEDS: gabapentin 300 mg Capsule PO (14:30)
--- NOTE | 2024-01-17 14:32 | ANES.PREANE2 ---
Pre-Anesthetic Assessment Height/Weight: Height 1.68 m Weight 62.596 kg Temp Pulse Resp BP Pulse Ox O2 Del Method 98.7 F 115 H 18 119/83 98 Room Air 01/17/24 14:18 01/17/24 14:18 01/17/24 14:18 01/17/24 14:18 01/17/24 14:18 01/17/24 14:21 Operation Date: 01/17/24 15:45 Proposed Procedures p Ulna Nerve Decompression(Right) - Vida Davis MD Familial anesthetic complications: woke up aggressive Was Beta Mansoor taken within 24 hours: N/A Was Clonidine taken within 24 hours: N/A Last intake: Intake Last Liquid Date 01/17/24 Last Liquid Time 05:30 Last Solid Date 01/16/24 Last Solid Time 21:30 Social Tobacco (.5ppd. smoked this AM) and No alcohol Exam alert and oriented x 3 Airway Submandibular: within normal limits Cervical ROM: within normal limits Mallampati: Class II Dentition: chipped (chipped front tooth, pt states from anesthesia. never was told she was a difficult intubation.) and full History/ROS No significant history except as noted Pulmonary Asthma (as a child only) CV/HEM Arrythmia (tachycardia in the past) Hereditary spherocytosis-has required transfusions in the past. pt states bad reaction to blood in [facility] ER post discharge, went to [facility] subsequently. None reported Hepatic None reported GI Gastroesophageal Reflux Disease Metabolic None reported Musc/skel None reported lymphadenopathy- has had 1 lymph node removed (right neck) by ENT due to size. Neuropsych Anxiety and None reported Anesthetic Plan ASA status: 3 Anesthesia: Anesthesia Evaluation and General Risk of > 500 ml blood loss (7ml/kg in children): No Medications/Allergies Home Medications Medication Instructions Recorded Confirmed Last Taken Type aspirin 81 mg tablet,delayed 81 mg PO DAILY 11/27/22 01/14/24 01/12/24 History release hydroxyzine HCl 25 mg tablet 25 mg PO BID PRN Anxiety 30 days 07/19/23 01/17/24 Unknown Rx #30 tabs acetaminophen 500 mg tablet 500 mg PO Q6H PRN Pain 08/06/23 01/14/24 08/05/23 History ibuprofen 200 mg tablet 400 mg PO Q6H PRN Pain 08/06/23 01/14/24 08/06/23 History Allergies Allergy/AdvReac Type Severity Reaction Status Date / Time chocolate Allergy throat Verified 01/14/24 11:54 swelling Iodinated Contrast Media Allergy ALGY-Joint Verified 01/14/24 11:54 Pain oxycodone Allergy Unknown Verified 01/14/24 11:54 Current Medications Generic Name Dose Route Start Last Admin Trade Name Asherq PRN Reason Stop Dose Admin Sodium Chloride 1,000 mls @ 30 mls/hr 01/17/24 14:00 01/17/24 14:30 Sodium Chloride 0.9% IV 01/18/24 13:59 30 mls/hr .Q24H SHAAN Administration PFSH Anesthesia Medical History Ulnar nerve entrapment at right elbow Lymphadenopathy Positive JOSÉ MIGUEL (antinuclear antibody) Multiple joint pain History of autoimmune disorder Metacarpophalangeal joint pain of right hand Hand pain, right Numbness and tingling in right hand Left ovarian cyst Anxiety Depression History of abnormal cervical Pap smear History of depression Asthma exacerbation Redundant colon Surgical History 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 H/O hysterectomy with oophorectomy History of appendectomy Family History Mother Raynaud's syndrome Scleroderma Congestive heart failure (CHF) Endometriosis Cancer chronic lymphatic leukemia Hypertension Grandmother Cancer acute lymphatic leukemia and lung leukemia--Maternal Grandfather Cancer Maternal--prostate Denies family history of Diabetes CAD (coronary artery disease) Clotting disorder Hyperlipidemia Chronic kidney disease (CKD) Bleeding disorder Stroke Social History Smoking and tobacco/nicotine status: current every day tobacco/nicotine user Second hand smoke exposure: No Alcohol intake: former Substance/Drug Use: never Adopted: No Lives independently: Yes Do you think of yourself as: Straight/Heterosexual Current gender identity: Female Data Anesthesia Cardiac Studies: No Data to Display
[2024-01-17] MEDS: ceFAZolin 2,000 mg SDV 2000 MG IVP (14:50)
[2024-01-17] MEDS: ceFAZolin 1,000 mg SDV 1000 MG IRRIGATION (15:24)
[2024-01-17] MEDS: BUPivacaine-epi 0.5% 10 ML INJ INJECTION (15:25)
--- NOTE | 2024-01-17 16:01 | P.OP_ITS ---
Operative Report Date of procedure: January 17, 2024 Pre-op diagnosis: Right cubital tunnel syndrome Post-op diagnosis: Right cubital tunnel syndrome Post-op findings: Significant compression of the ulnar nerve as it crosses through the cubital tunnel Procedure done: Right ulnar nerve decompression at the elbow, cubital tunnel release Implants: None Specimens removed/disposition: None Surgeon: Vida Davis MD Resource Program Teacher: None Anesthesia: General (Per LMA, ASA 3) Estimated blood loss (mL): 2 Tourniquet time (min): 32 (At 250 mmHg) IV fluids (mL): 700 Urine output (mL): 0 (No Akins) Complications: None Findings: Hypersensitive right ulnar nerve at the elbow. Condition: stable Disposition: PACU (Then return to same-day surgery for discharge to home) Brief History: This 23-year-old woman presented to the office with complaints of numbness and tingling consistent with ulnar nerve entrapment. She had multiple symptoms, and she was seen by her well shooter. The patient was advised that decompression of the ulnar nerve at the elbow would not address all of the patient's symptoms. Her well shooter, however, felt that she would significantly benefit from ulnar nerve release at the elbow, and therefore, after extended discussion in the office, the patient was scheduled for right cubital tunnel release. In the office, risks and complications were discussed with the patient. Consents were signed and questions were answered. Procedure: The patient was brought to the operating theater. The patient was administered a general anesthetic per LMA, ASA 3. Following this, the patient's right upper extremity was prepped and draped with DuraPrep. It was draped free following placement of the tourniquet high on the patient's arm. Following prepping and draping and prior to surgical incision, a surgical pause was performed. At the time of surgical pause, we confirmed the site and side of surgery as well as appropriate and timely administration of preoperative antibiotics. Following the surgical pause, the arm was exsanguinated using an Grant wrap. The tourniquet was elevated to 250 mmHg and total tourniquet time was 32 minutes. Following exsanguination and elevation of the tourniquet, landmarks were marked with a skin marker. We marked the medial epicondyle of the humerus as well as the tip of the olecranon. Preoperative markings were accomplished as well, but the incision was planned following the anesthetic. An incision was made at the point about midway between the two continuing for a total distance of approximately 4 cm. The dissection was continued through skin and soft tissues carefully. We also incised the flexor aponeurosis over the ulnar nerve taking care to isolate the ulnar nerve and avoid injury to it. The aponeurotic band over the nerve was divided and the nerve was traced distally between the two heads of the flexor carpi ulnaris muscle. Care was taken to protect neurovascular structures as well as any branches of the nerve. The fasciotomy of the flexor carpi ulnaris was accomplished to a point where I could pass my finger along the nerve and not feel any area which compressed my small finger. The ulnar nerve was left lying in its bed and it was also evaluated proximally to assure there were no further bands of compression. Gently I was able to extend the release proximally as well to assure that once again I could pass a small finger without any obvious areas which compressed across the ulnar nerve. In this fashion, we had completed the release of the entire cubital tunnel without injury to the nerve. Hemostasis was obtained using cautery. The nerve was noted to be purplish in this area. Once we had completely released proximally and distally and were able to palpate and directly visualize the nerve, attention was directed to closure. We then passively extended and flexed the elbow to assure that the nerve remained in its cubital area. Subluxation of the nerve did not occur and therefore attention was directed to closure. Skin closure was the only closure accomplished in addition to the subcutaneous tissues. We closed the subcutaneous tissues with 3-0 Monocryl and subsequently closed the skin with a subcuticular 4-0 Monocryl. Patient was then placed in a large soft dressing consisting of Dermabond, Steri- Strips, OpSite, ABD's, soft roll, and an Grant wrap. In the Recovery Room, the patient was neurologically intact. There were no complications. There were no specimens. The procedure was well tolerated. Patient will be discharged home to follow-up with me in the office. Related Problem List Diagnoses (1) Ulnar nerve entrapment at right elbow:
--- NOTE | 2024-01-17 17:30 | ANE.PACU2 ---
Inpatient post-anesthesia follow up: Airway intact: Yes Vital signs: Temperature 98.5 F Pulse Rate 88 Respiratory Rate 16 Blood Pressure 113/72 Pulse Oximetry 98 Oxygen Delivery Me thod Room Air Oxygen Flow Rate Fraction of Inspir ed Oxygen Hydration adequate: Yes Nausea and vomiting: No Pain level: 1 Mental status: Baseline
== END 2024-01-17 17:30 | disposition home or self-care (01) ==
PROVIDERS: PCP Family Medicine; Visit Provider Specialist
PROC: (CPT 64718; principal; 2024-01-17 15:35)
DX: G56.21 Lesion of ulnar nerve, right upper limb (principal); F17.210 Nicotine dependence, cigarettes, uncomplicated; K21.9 Gastro-esophageal reflux disease without esophagitis; Z79.82 Long term (current) use of aspirin; F17.200 Nicotine dependence, unspecified, uncomplicated
CPT/HCPCS: 64718; J0131; J0690; J1100; J2250; J2405; J2704; J3010; J7030

== ENCOUNTER 2024-06-30 12:19 | Emergency (ER) | payer MEDICAID, SELFPAY ==
[2024-06-30 12:19] VITALS: BP 131/72; PULSE 107; RESP 16; TEMP 37.1; O2SAT 99; BMI 21.3
--- NOTE | 2024-06-30 12:24 | XRR_ITS ---
PROCEDURE INFORMATION: Exam: XR Chest Exam date and time: 06/30/2024 12:36 PM Age: 24 years old Clinical indication: Other: AMS TECHNIQUE: Imaging protocol: Radiologic exam of the chest. Views: 1 view. COMPARISON: CR XR chest 1V portable [id number] 11/03/2023 9:11 PM FINDINGS: Lungs: Unremarkable. No consolidation. Pleural spaces: Unremarkable. No pleural effusion. No pneumothorax. Heart/Mediastinum: Unremarkable. No cardiomegaly. Bones/joints: Unremarkable. XR/XR chest 1V portable [id number] IMPRESSION: No acute findings.
[2024-06-30 12:34] LABS: Basophils # 0.1 10^3/uL (0.0-0.1); Basophils % 0.8 %; Eosinophils # 0.3 10^3/uL (0.0-0.8); Eosinophils % 1.8 %; Hematocrit 49.6 % (36-47); Lymphocytes # 9.2 10^3/uL (0.8-4.8); Lymphocytes % 60.5 %; Mean Corpuscular HGB Conc 33.9 g/dL (30-55); Mean Corpuscular Hemoglobin 27.4 pg (27-33); Mean Corpuscular Volume 80.9 fl (85-98); Mean Platelet Volume 9.6 fL (7.4-10.4); Monocytes # 1.4 10^3/uL (0.2-0.9); Neutrophils # 4.21 10^3/uL (1.8-7.7); Neutrophils % 27.7 %; Nucleated Red Blood Cells % 0 %; Platelet Count 630 10^3/cmm (157-399); Red Blood Count 6.13 10^6/uL (3.85-5.65); Red Cell Distribution Width 12.4 % (12.1-15.1); White Blood Count 15.23 10^3/uL (3.29-11.43)
--- NOTE | 2024-06-30 12:49 | W.ED.GENADLT ---
HPI - General Adult General: Chief complaint: Dizziness Stated complaint: ams - blood disorder Time Seen by Provider: 06/30/24 12:23 Source: patient and family (mother) Mode of arrival: ambulatory Limitations: no limitations History of Present Illness: Patient is a 24-year-old female with an extensive past medical history including hereditary spherocytosis requiring cholecystectomy and splenectomy (other surgeries include appendectomy and hysterectomy), anxiety, autoimmune disorder, lymphadenopathy here for medical evaluation of symptoms including dizziness, back pain, severe fatigue, and intermittent paresthesias to her hands and lower extremities. Symptoms beginning yesterday and into today. She does state last week she was prepping for a colonoscopy due to some GI issues she has been having including abdominal pain. She states she has had CT imaging that is unrevealing thus they wanted to perform colonoscopy for further evaluation. She has been told she could have alpha gal although she does not believe this diagnosis as she has never had any issues with red meat. She questions whether the colon prep could have contributed to some dehydration. She has felt this way with previous, what she describes, as hereditary spherocytosis flares. Patient follows with many specialities including hematology, GI, rheumatology, [facility], and ENT. Onset (ago): day(s) Severity: moderate Relieving factors: none Exacerbating factors: none Associated symptoms: Reports malaise; Deny chest pain, confusion or dyspnea Treatments prior to arrival: none Related Data Home Medications ?Medication ?Instructions ?Recorded ?Confirmed aspirin 81 mg tablet,delayed 81 mg PO DAILY 11/27/22 06/30/24 release acetaminophen 500 mg tablet 500 mg PO Q6H PRN Pain 08/06/23 06/30/24 fluoxetine 10 mg capsule (Prozac) 10 mg PO DAILY 04/21/24 06/30/24 dicyclomine 10 mg capsule 10 mg PO QID 06/30/24 06/30/24 epinephrine 0.3 mg/0.3 mL 0.3 ml IM PRN PRN Allergic Reaction 06/30/24 06/30/24 injection, auto-injector Previous Rx's ?Medication ?Instructions ?Recorded hydrocodone 7.5 mg-acetaminophen 1 tab PO Q8H PRN pain #15 tabs 01/17/24 325 mg tablet Allergies Allergy/AdvReac Type Severity Reaction Status Date / Time chocolate Allergy throat Verified 04/21/24 13:56 swelling Iodinated Contrast Media Allergy ALGY-Joint Verified 04/21/24 13:56 Pain oxycodone Allergy Unknown Verified 04/21/24 13:56 Review of Systems Const: Reports: fatigue and malaise; Denies: fever(s), chills or body aches Eyes: Denies: change in vision, blurry vision, photophobia, floaters or seeing flashes Card: Denies: chest pain Resp: Denies: dyspnea, productive cough or non-productive cough GI: Reports: abdominal pain (chronic-at baseline-scheduled for colonoscopy) : Denies: flank pain or dysuria Musc: Reports: back pain; Denies: neck pain, extremity pain, extremity swelling, joint pain, joint swelling or joint redness Neuro: Reports: sensory changes (intermittent paresthesias bilateral hands and lower extremities) and dizziness; Denies: weakness in extremities, confusion, Slurred speech present, difficulty communicating thoughts or seizure-like activity Psych: Reports: anxiety PFSH ED PFSH: Medical History Ulnar nerve entrapment at right elbow Lymphadenopathy Positive JOSÉ MIGUEL (antinuclear antibody) Multiple joint pain History of autoimmune disorder Metacarpophalangeal joint pain of right hand Hand pain, right Numbness and tingling in right hand Left ovarian cyst Anxiety Depression History of abnormal cervical Pap smear History of depression Asthma exacerbation Redundant colon Surgical History 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 H/O hysterectomy with oophorectomy History of appendectomy Family History Mother Raynaud's syndrome Scleroderma Congestive heart failure (CHF) Endometriosis Cancer chronic lymphatic leukemia Hypertension Grandmother Cancer acute lymphatic leukemia and lung leukemia--Maternal Grandfather Cancer Maternal--prostate Denies family history of Diabetes CAD (coronary artery disease) Clotting disorder Hyperlipidemia Chronic kidney disease (CKD) Bleeding disorder Stroke Social History Smoking and tobacco/nicotine status: current every day tobacco/nicotine user Second hand smoke exposure: No Alcohol intake: former Substance/Drug Use: never Adopted: No Lives independently: Yes Do you think of yourself as: Straight/Heterosexual Current gender identity: Female Physical Exam Const: COMMON NORMALS: no acute distress, average body habitus, patient oriented x3, no limitations, healthy appearing, alert and well nourished GENERAL APPEARANCE: cooperative HENMT: COMMON NORMALS: normocephalic and atraumatic HEAD & SCALP: normal to inspection, normocephalic and atraumatic FACE & SINUS: face symmetric Eye: COMMON NORMALS: no scleral icterus GENERAL EYE: appearance normal, both eyes and all related structures Neck/C-Spine: COMMON NORMALS: supple and no meningeal signs Resp: COMMON NORMALS: normal respiratory effort and clear to auscultation bilaterally AUSCULTATION: clear to auscultation bilaterally Cardio: COMMON NORMALS: regular rate and regular rhythm RATE: regular rate RHYTHM: regular rhythm GI: COMMON NORMALS: Soft to palpation, non-tender and no masses INSPECTION: Yes normal to inspection PALPATION: Yes Soft to palpation, Yes Tenderness to palpation present (GI) (mild lower abdomen-non surgical examination), No Guarding due to palpation present (GI) and No Rigid due to palpation : COMMON NORMALS: Yes no CVA tenderness BLADDER/KIDNEY EXAM: Yes no CVA tenderness Back/Pelvis: COMMON NORMALS: no CVA tenderness Extremity: COMMON NORMALS: normal to inspection GENERAL: Yes normal exam except as noted Neuro: PRETTY COMA SCALE: document GCS findings Pretty coma scale eye opening: Spontaneous Pretty coma scale verbal response: Orientated Pretty coma scale motor response: Obey commands [place] coma scale total score: 15 COMMON NORMALS: patient oriented x3 SENSORIUM/ORIENTATION: Yes alert MENINGEAL SIGNS: Yes no meningeal signs Skin: COMMON NORMALS: no rashes or lesions noted GENERAL SKIN EXAM: no rashes or lesions noted Course Vital Signs: Vital signs: Vital Signs Temperature 98.7 F 06/30/24 12:19 Pulse Rate 107 H 06/30/24 12:19 Respiratory Rate 16 06/30/24 12:19 Blood Pressure 131/72 06/30/24 12:19 Pulse Oximetry 99 06/30/24 12:19 Oxygen Delivery Me thod Room Air 06/30/24 12:19 [facility] - General Adult Medical Decision Making Patient is a 24-year-old female with a complex medical history here for concerns of fatigue, dizziness, and back pain. She feels like symptoms have somewhat improved after IV hydration. Her vital signs are stable. Blood work overall is close to her baseline. She has chronic leukocytosis. 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 Her hemoglobin today is 16.8. Chemistry overall fairly unremarkable/nonactionable. LFTs and kidney functions are normal. Mild hypokalemia which she was given oral supplementation here for. UA without evidence for infection. Her CXR is unremarkable. At this time I feel patient is stable for discharge from an emergency standpoint. Recommend she follow-up with her primary care provider and/or her specialists as needed. She is welcome to return to the emergency department for any further concerns she may have. Medical Records I reviewed the patient's medical records. Lab Data I reviewed the patient's lab results. 06/30/24 12:10 06/30/24 12:10 Radiology Impressions Chest X-Ray 06/30/24 12:24 IMPRESSION: No acute findings. Laboratory Results WBC 15.23 10^3/uL (3.29-11.43) H 06/30/24 12:10 RBC 6.13 10^6/uL (3.85-5.65) H 06/30/24 12:10 Hgb 16.80 g/dL (11.27-16.99) 06/30/24 12:10 Hct 49.6 % (36-47) H 06/30/24 12:10 MCV 80.9 fl (85-98) L 06/30/24 12:10 MCH 27.4 pg (27-33) 06/30/24 12:10 MCHC 33.9 g/dL (30-55) 06/30/24 12:10 RDW 12.4 % (12.1-15.1) 06/30/24 12:10 Plt Count 630 10^3/cmm (157-399) H 06/30/24 12:10 MPV 9.6 fL (7.4-10.4) 06/30/24 12:10 Neut % (Auto) 27.7 % 06/30/24 12:10 Lymph % (Auto) 60.5 % 06/30/24 12:10 [place] % (Auto) 9.0 % 06/30/24 12:10 Eos % (Auto) 1.8 % 06/30/24 12:10 Baso % (Auto) 0.8 % 06/30/24 12:10 Neut # (Auto) 4.21 10^3/uL (1.8-7.7) 06/30/24 12:10 Lymph # (Auto) 9.2 10^3/uL (0.8-4.8) H 06/30/24 12:10 [place] # (Auto) 1.4 10^3/uL (0.2-0.9) H 06/30/24 12:10 Eos # (Auto) 0.3 10^3/uL (0.0-0.8) 06/30/24 12:10 Baso # (Auto) 0.1 10^3/uL (0.0-0.1) 06/30/24 12:10 Nucleated RBC % (auto) 0 % 06/30/24 12:10 Nucleated RBCs # 0.0 /100WBC 06/30/24 12:10 Sodium 140 mmol/L (136-145) 06/30/24 12:10 Potassium 3.4 mmol/L (3.5-5.1) L 06/30/24 12:10 Chloride 102 mmol/L (98-107) 06/30/24 12:10 Carbon Dioxide 20 mmol/L (22-29) L 06/30/24 12:10 Anion Gap 21.4 (5-19) H 06/30/24 12:10 BUN 7 mg/dL (6-20) 06/30/24 12:10 Creatinine 0.5 mg/dL (0.5-0.9) 06/30/24 12:10 GFR Calculation 149.1 mL/min (90-130) H 06/30/24 12:10 Glucose 104 mg/dL (65-115) 06/30/24 12:10 Calculated Osmolality 288 mOsm/kg (285-295) 06/30/24 12:10 Calcium 9.8 mg/dL (8.5-10.5) 06/30/24 12:10 Total Bilirubin 0.4 mg/dL (0.15-1.2) 06/30/24 12:10 AST 19 U/L (0-32) 06/30/24 12:10 ALT 17 U/L (0-33) 06/30/24 12:10 Alkaline Phosphatase 80 U/L (35-105) 06/30/24 12:10 Total Protein 9.1 g/dL (6.6-8.7) H 06/30/24 12:10 Albumin 5.2 g/dL (3.5-5.2) 06/30/24 12:10 Globulin 3.9 g/dL (1.3-4.6) 06/30/24 12:10 HCG, Qual Negative (Negative) 06/30/24 12:10 Urine Color Yellow (Yellow) 06/30/24 12:58 Urine Appearance Clear (CLEAR) 06/30/24 12:58 Urine pH 7.5 (5-7) 06/30/24 12:58 Ur Specific [place] 1.004 (1.005-1.030) L 06/30/24 12:58 Urine Protein Negative (Negative) 06/30/24 12:58 Urine Glucose (UA) Negative (Normal) 06/30/24 12:58 Urine Ketones Negative (Negative) 06/30/24 12:58 Urine Blood Negative (Negative) 06/30/24 12:58 Urine Nitrate Negative (Negative) 06/30/24 12:58 Urine Bilirubin Negative (Negative) 06/30/24 12:58 Urine Urobilinogen 0.2 mg/dL (Negative) 06/30/24 12:58 Ur Leukocyte Esterase Negative (Negative) 06/30/24 12:58 Urine RBC 0-2 /hpf (0-2) 06/30/24 12:58 Urine WBC 0-5 /hpf (0-5) 06/30/24 12:58 Ur Squamous Epith Cells 0-5 /hpf (0-5) 06/30/24 12:58 Amorphous Sediment Not Reportable 06/30/24 12:58 Urine Bacteria None seen /hpf (NONE) 06/30/24 12:58 Hyaline Casts 0-4 /lpf H 06/30/24 12:58 All radiology interpretation(s) finalized by discharge Discharge Plan Discharge Patient Disposition: Home Clinical Impression: Hereditary spherocytosis, Dehydration, Hypokalemia, Dizziness Condition: Stable Prescriptions: No Action fluoxetine [Prozac] 10 mg capsule 10 mg PO DAILY aspirin 81 mg Tablet,Delayed Release (Dr/Ec) 81 mg PO DAILY acetaminophen 500 mg Tablet 500 mg PO Q6H PRN (Reason: Pain) hydrocodone-acetaminophen 7.5-325 mg tablet 1 tab PO Q8H PRN (Reason: pain) Qty: 15 0RF epinephrine 0.3 mg/0.3 mL auto-injector 0.3 ml IM PRN PRN (Reason: Allergic Reaction) dicyclomine 10 mg capsule 10 mg PO QID Discharge Orders: Discharge ED (Routine); Ordered 06/30/24 Ordered By: Elsa Fernando Referrals: Geno Burt MD [Primary Care Provider] - Activity Restrictions/Additional Instructions: As we discussed, your blood work here (from an emergency standpoint) is stable and close to your baseline. You were given a small amount of potassium as your potassium was scantly low. Your urine analysis and chest x-ray did not reveal any evidence for infection. You indicated your dizziness was improving after IV fluid resuscitation. At this point I would like you to follow-up with your primary care provider and/or magnetic prospecting supervisor if needed for further evaluation of symptoms. You may always return to the emergency department for any further concerns you may have. It was a pleasure to care for you today and I hope you begin to feel better. Print Language: Palauan Coding Level of Care Code ED Home Appliances Mechanic for Isabel Keating
[2024-06-30 12:51] LABS: HCG, Serum Qual Negative (Negative)
[2024-06-30 12:55] LABS: Alanine Aminotransferase 17 U/L (0-33); Albumin Level 5.2 g/dL (3.5-5.2); Alkaline Phosphatase 80 U/L (35-105); Anion Gap 21.4 (5-19); Aspartate Amino Transferase 19 U/L (0-32); Blood Urea Nitrogen 7 mg/dL (6-20); Calcium 9.8 mg/dL (8.5-10.5); Carbon Dioxide 20 mmol/L (22-29); Chloride 102 mmol/L (98-107); Creatinine Clr Calc Pharmacy 160.2338; Globulin 3.9 g/dL (1.3-4.6); Glomerular Filtration Rate 149.1 mL/min (90-130); Glucose 104 mg/dL (65-115); Osmolality Calculated 288 mOsm/kg (285-295); Potassium 3.4 mmol/L (3.5-5.1); Slide Review Slide Review Perform; Sodium 140 mmol/L (136-145); Total Bilirubin 0.4 mg/dL (0.15-1.2); Total Protein 9.1 g/dL (6.6-8.7)
[2024-06-30] MEDS: sodium chloride 0.9% 1,000 ML 999 ML IV (12:56)
[2024-06-30 13:07] LABS: Bilirubin Urine Negative (Negative); Blood Urine Negative (Negative); Glucose Urine UA Negative (Normal); Ketones Urine Negative (Negative); Leukocyte Esterase Urine Negative (Negative); Nitrate Urine Negative (Negative); Protein Urine Negative (Negative); Specific Gravity, Urine 1.004 (1.005-1.030); Urine Appearance Clear (CLEAR); Urine Color Yellow (Yellow); Urobilinogen Urine 0.2 mg/dL (Negative); pH Urine 7.5 (5-7)
[2024-06-30 13:09] LABS: Add Urine Microscopic? YES; Bacteria Urine None Seen /hpf; Hyaline Casts Urine 0-4 /lpf; RBC Urine 0-2 /hpf (0-2); Squamous Epithelial Cell Urine 0-5 /hpf (0-5); WBC Urine 0-5 /hpf (0-5)
[2024-06-30 13:10] LABS: Add Urine Culture? No
[2024-06-30] MEDS: potassium chloride ER 20 mEq Tablet 40 MEQ PO (13:41)
[2024-06-30] MEDS: sodium chloride 0.9% 500 ML IV (13:41)
[2024-06-30] MEDS: ondansetron 2 mg/ML SDV 2 mL 4 MG IVP (13:41)
[2024-06-30 15:27] VITALS: BP 106/57; PULSE 81; RESP 16; O2SAT 98
== END 2024-06-30 14:52 | disposition home or self-care (01) ==
PROVIDERS: Emergency Provider Physician Assistant; PCP Family Medicine
DX: D58.0 Hereditary spherocytosis (principal); E86.0 Dehydration; E87.6 Hypokalemia; R42 Dizziness and giddiness; Z79.82 Long term (current) use of aspirin; Z72.0 Tobacco use
CPT/HCPCS: 71045; 80053; 81001; 84703; 85025; 96361; 96374; 99284; J2405; J7030; J7040; J9999